=== PATIENT | male | born 2000 | race Caucasian/White ===

== ENCOUNTER 2020-06-30 13:47 | Outpatient (REF) | payer OTHER, SELFPAY | END 2020-06-30 13:48 | disposition home or self-care (01) | LOC: HO.LAB 13:47 | PROVIDERS: Visit Provider Internal Medicine | DX: Z20.822 Contact with and (suspected) exposure to COVID-19 (principal) | CPT/HCPCS: 36415; C9803; U0003 ==

== ENCOUNTER 2021-04-08 02:37 | Inpatient (IN) | payer OTHER, SELFPAY ==
--- NOTE | 2021-04-08 02:41 | ED_ITS ---
HPI - Psych General Chief Complaint: Psychiatric Symptoms Stated Complaint: Crisis Time Seen by Provider: 04/08/21 02:38 Source: patient Mode of arrival: ambulatory Limitations: no limitations History of Present Illness HPI Narrative: per BHN seen in [facility] S12 bedsearch complaint: suicidal ideation and feels depressed Onset (ago): week(s) Duration: constant History of same: Yes Relieving factors: none Exacerbating factors: other Context: other (states two nights ago he took several pills of his 10mg escitalopram in overdose) Associated psychiatric symptoms: depression and suicidal ideation Associated symptoms: denies other symptoms Treatments prior to arrival: placed on mental health hold If self harm: admits thoughts of self harm, has plan and has acted on plan Related Data Allergies Allergy/AdvReac Type Severity Reaction Status Date / Time Unable to Assess Allergy Verified 04/08/21 02:42 Review of Systems Review of Systems: Constitutional : No Fever, No Chills ENT/Mouth : No Ear Pain, No Nasal Congestion, No sore throat Eyes: No Eye Pain, No Swelling, No Redness Cardiovascular : No Chest Pain, No SOB Respiratory : No Cough, No Sputum, No Dyspnea Gastrointestinal : No Nausea, No Vomiting, No Diarrhea, No Hematochezia, No Melena Genitourinary : No Dysuria, No Urinary Frequency, No Hematuria Musculoskeletal : No Myalgias Skin : No Skin Lesions, No rash Neuro : No Weakness, No Numbness, No Paresthesias, No Dizziness, No Headache Psych : positive Anxiety, positive Depression, positive SI no HI Heme/Lymph: No Lymphadenopathy Endocrine : No Polyuria, No Polydipsia All other systems reviewed and are negative PMFSH Past Medical History Attestation statement: The following information was validated with the patient. Medical History Depression Social History Social History (Updated 04/08/21 @ 02:50 by Ana Gomez DO) Patient Tobacco Use Status: Never used Tobacco Substance Use Type: Marijuana Advance Directives: No Physical Exam Vital Signs: Vital Signs: Last Vital Signs Temp 98.2 F 04/08/21 03:11 Pulse 90 04/08/21 03:11 Resp 17 04/08/21 03:11 BP 142/89 H 04/08/21 03:11 Pulse Ox 96 04/08/21 03:11 Body Mass Index 27.1 Appearance: Alert. Oriented X3. No acute distress. Eyes: Pupils equal, round and reactive to light. ENT: Pharynx normal. Neck: Normal inspection. Neck supple. CVS: Normal heart rate and rhythm. Pulses normal. Respiratory: No respiratory distress. Breath sounds normal. Abdomen: Soft and non-tender. Skin: Skin warm and dry. Normal skin color. Extremities: No lower extremity edema. Neuro: Oriented X 3. No motor deficit. No sensory deficit. CN 2-12 intact Psych: pos SI, depression Course Course Course Narrative: Physician observation started at 356am Patient placed in physician observation because the patient needed more time for psychiatric placement. At the time observation was started the patient's vitals were stable, patient is alert and oriented, Neuro: nonfocal, CV RRR, Lungs clear MDM - Psych MDM Narrative Medical decision making narrative: 21 yo male with depression here with SI on section 12 hold and inpatient bed search from [facility] - he did report an ingestion of 10mg escitalopram 2 nights ago in SI attempt - will need labs, EKG to medically cleared but since it has been 48 hours I do not expect any toxic effects at this time. Planned bed search. Lab Data Labs: Lab Results 04/08/21 Range/Units 03:27 COVID-19 ([facility]AN[facility]) Negative (Negative) COVID-19 Clin Com See Note ECG Data Attestation: I personally reviewed and interpreted this ECG as follows: ECG interpretation date: 04/08/21 ECG interpretation time: 03:38 Interpretation: Rate: 71 Rhythm: NSR [place]: normal Normal P waves. Normal KINDRA. Normal QRS complex. ST T wave : normal no DAVID, early repolarization qTC: normal prior studies: no acute ischemia The study has been interpreted contemporaneously by me. . Discharge Plan Discharge Clinical Impression: Depression Qualifiers: Depression Type: unspecified Qualified Code(s): F32.A - Depression, unspecified Patient Disposition: Still a Patient
[2021-04-08 02:45] VITALS: BP 142/89; PULSE 97; RESP 17; TEMP 36.8; O2SAT 95; BMI 27.1
--- NOTE | 2021-04-08 02:48 | ECG_ITS ---
Test Reason : CP Blood Pressure : / mmHG Vent. Rate : 071 BPM Atrial Rate : 071 BPM P-R Int : 154 ms QRS Dur : 088 ms QT Int : 378 ms P-R-T Axes : 057 058 046 degrees QTc Int : 410 ms Normal sinus rhythm Nonspecific T wave abnormality Anterior leads Borderline ECG No previous ECGs available Referred By: Ana Gomez Electronically Signed By:NAOMIE LOPES MD
[2021-04-08 03:11] VITALS: BP 142/89; PULSE 90; RESP 17; TEMP 36.8; O2SAT 96
[2021-04-08 03:46] LABS: COVID-19 Test Negative (Negative); IDNOW Serial# 9DD0AD1C
[2021-04-08 04:06] LABS: MANUAL DIFF FLAG NO
[2021-04-08 04:08] LABS: Basophils Percent Auto 0.3 % (0-2); Eosinophils Percent Auto 0.3 % (0-4); Hematocrit 46.3 % (42-52); Hemoglobin 15.5 g/dl (14.0-18.0); Imm Gran Abs Auto 0.03 X10*3/uL (0.00-0.03); Imm Gran Pct Auto 0.3 % (0.0-0.4); Lymphocytes Absolute Auto 2.3 X10*3/uL (1.2-4.9); Lymphocytes Percent Auto 20.8 % (20-40); Mean Corpuscular HGB Conc 33.5 g/dl (31.0-36.0); Mean Corpuscular Hemoglobin 27.4 pg (27.0-33.0); Mean Corpuscular Volume 81.9 fL (80-98); Mean Platelet Volume 11.1 fL (9.4-12.4); Monocytes Absolute Auto 0.9 X10*3/uL (0.1-1.2); Monocytes Percent Auto 7.6 % (2-11); Neutrophils Absolute Auto 7.9 X10*3/uL (2.0-8.3); Neutrophils Percent Auto 70.7 % (45-73); Platelet Count 205 X10*3/uL (160-400); Red Blood Count 5.65 X10*6/uL (4.60-5.80); Red Cell Distribution Width 12.5 % (11.0-16.0); White Blood Count 11.2 X10*3/uL (4.8-10.8)
[2021-04-08 04:21] LABS: Ethanol < 10 mg/dL
[2021-04-08 04:27] LABS: Alanine Aminotransferase 17 U/L (0-40); Alkaline Phosphatase 68 U/L (39-117); Anion Gap 14 (12-20); Aspartate Amino Transferase 20 U/L (5-37); Bilirubin Direct 0.2 mg/dL (0.0-0.5); Bilirubin Total 0.5 mg/dL (0.0-1.0); Blood Urea Nitrogen 11 mg/dL (9-16); Calcium 9.6 mg/dL (8.4-10.2); Carbon Dioxide 27 mmol/L (22-29); Chloride 103 mmol/L (96-108); Creatinine Clr Calc Pharmacy 116.5; Estimated Glomerular Filt Rate > 60; Glucose Random 97 mg/dL (60-115); Potassium 4.9 mmol/L (3.3-5.1); Sodium 139 mmol/L (135-145); Total Protein 7.6 g/dL (6.5-8.0)
--- NOTE | 2021-04-08 05:04 | PC.NURSE ---
Patient is up in his room watching TV, No distress observed/reported, VSS, pending urine sample, behavior calm and pleasant, patient is off his medication for months, patient reported he attempted to overdose on his prescribed meds last Monday, EKG unremarkable, patient got evaluated by BHN via zoom, disposition is section 12 inpatient bed search, patient and mother aware, will continue to monitor.
[2021-04-08 05:10] VITALS: BP 121/71; PULSE 81; TEMP 36.6; O2SAT 99
--- NOTE | 2021-04-08 06:59 | PC.NURSE ---
patient appears to remain asleep at present, respirations are even and unlabored, patient appears in no distress
[2021-04-08 08:54] LABS: Amphetamine Screen Urine Not Detected (Not Detect); Barbiturates, Urine Not Detected (Not Detect); Benzodiazepines Screen Urine Not Detected (Not Detect); Cannabinoid Screen Urine POSITIVE (Not Detect); Cocaine Screen Urine Not Detected (Not Detect); Fentanyl, urine Not Detected (Not Detect); Opiate Screen Urine Not Detected (Not Detect); Phencyclidine Screen Urine Not Detected (Not Detect)
[2021-04-08 16:12] VITALS: BP 129/79; PULSE 71; RESP 16; TEMP 36.6; O2SAT 98; BMI 33.2
--- NOTE | 2021-04-08 17:47 | PC.ADMIT ---
Pt is a 21y/o male transferred from [facility] for medical clearance. Pt reports overdosing on two bottles of pills. Pt A/O X3. VSS. Covid negativ, Tox positive for THC, CV, 15mins check. Diagnosis: depression/OD. Pt appeared labile, and depressed, endorsed SI, denies Hi. No auditory or visual hallucination reported. Speech is clear with normal rhythm, tone and tano. Pt states he wants to get his medications fixed. Pr C/O of bilateral blurry vision and slow stream when urinating. Provider notified, admit/transfer order obtained.
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
[2021-04-08] MEDS: Mirtazapine 7.5 MG TABLET PO (20:25)
[2021-04-09] MEDS: Escitalopram Oxalate 10 MG TABLET PO (09:25)
[2021-04-09 10:10] VITALS: BP 138/78; PULSE 67
--- NOTE | 2021-04-09 10:38 | HO.PSYCHPN ---
Subjective Subjective Date of Service: 04/09/21 Reason For Visit: Depression and SI Interim History: pt depressed; ambivalent about whether he's glad he's alive or wishes he but is working on being hopeful and wants treatment. Reviewed hx. Pt reports trial of Prozac for 1 month during which time he started talking indiscriminately to people about personal things, something very out of character. During this time he had pressured speech and would quickly interrupt others to talk more about his own topics. He found himself more hyper, moving around a lot; he still slept at night, but thinks he was needing less sleep at this time. Pt did not like how he felt, did not like being disinhibited so stopped taking Prozac and quickly fell into a deep depression. Mental Status Exam Mental Status Exam Narrative: A&O. Well groomed, good hygiene, normal body habitus, in hospital attire. Depressed mood; affect downcast and eye contact somewhat avoidant, attentive. No Tics or Tremors. No abnormal involuntary movements. Calm, cooperative, engaged. Non-pressured speech, spontaneous with regular rate and rhythm, normal volume and prosody. No prolonged speech latency or dysarthria. Currently denies SI, but still ambivalent about being alive; has recent SIB and intentional OD attempt; denies HI upon inquiry. Denies A/VH or delusional thought content. Thoughts are coherent, organized. No known cognitive or memory impairment. Insight/ Judgment impaired.? Diagnostics Vital Signs (24Hr): Vital Signs - 24 hr 04/08/21 16:12 04/09/21 10:10 Temperature 97.8 F Pulse Rate 71 67 Respiratory Rate 16 Blood Pressure 129/79 138/78 Pulse Oximetry 98 Body Mass Index 33.2 Labs Results: 04/08/21 04:01 04/08/21 04:01 Labs: Laboratory Results - last 48 hr 04/08/21 04/08/21 04/08/21 03:27 04:01 04:01 WBC 11.2 H RBC 5.65 Hgb 15.5 Hct 46.3 MCV 81.9 MCH 27.4 MCHC 33.5 RDW 12.5 Plt Count 205 MPV 11.1 Immature Gran % (Auto) 0.3 Neut % (Auto) 70.7 Lymph % (Auto) 20.8 [place] % (Auto) 7.6 Eos % (Auto) 0.3 Baso % (Auto) 0.3 Lymph # (Auto) 2.3 [place] # (Auto) 0.9 Eos # (Auto) 0.0 Baso # (Auto) 0.0 Abs Immat Gran (auto) 0.03 Absolute Neuts (auto) 7.9 Absolute Nucleated RBC 0.000 Nucleated RBC % (auto) 0.0 Sodium 139 Potassium 4.9 Chloride 103 Carbon Dioxide 27 Anion Gap 14 BUN 11 Creatinine 1.10 Estim Creat Clear Calc 116.5 Estimated GFR > 60 Random Glucose 97 Calcium 9.6 Total Bilirubin 0.5 Direct Bilirubin 0.2 AST 20 ALT 17 Alkaline Phosphatase 68 Total Protein 7.6 Albumin 5.0 Urine Opiates Screen Urine Fentanyl Screen Ur Barbiturates Screen Ur Phencyclidine Scrn Ur Amphetamines Screen U Benzodiazepines Scrn Urine Cocaine Screen U Marijuana (THC) Screen Ethyl Alcohol COVID-19 ([facility]) Negative COVID-19 Clin Com See Note 04/08/21 04/08/21 04:01 08:33 WBC RBC Hgb Hct MCV MCH MCHC RDW Plt Count MPV Immature Gran % (Auto) Neut % (Auto) Lymph % (Auto) [place] % (Auto) Eos % (Auto) Baso % (Auto) Lymph # (Auto) [place] # (Auto) Eos # (Auto) Baso # (Auto) Abs Immat Gran (auto) Absolute Neuts (auto) Absolute Nucleated RBC Nucleated RBC % (auto) Sodium Potassium Chloride Carbon Dioxide Anion Gap BUN Creatinine Estim Creat Clear Calc Estimated GFR Random Glucose Calcium Total Bilirubin Direct Bilirubin AST ALT Alkaline Phosphatase Total Protein Albumin Urine Opiates Screen Not Detected Urine Fentanyl Screen Not Detected Ur Barbiturates Screen Not Detected Ur Phencyclidine Scrn Not Detected Ur Amphetamines Screen Not Detected U Benzodiazepines Scrn Not Detected Urine Cocaine Screen Not Detected U Marijuana (THC) Screen POSITIVE H Ethyl Alcohol < 10 COVID-19 ([facility]) COVID-19 Clin Com Medications Medications Current Medications Acetaminophen (Acetaminophen 325 Mg Tablet) 650 mg PO Q6H PRN PRN Reason: Headache/Pain Mild Scale (1-3) Al Hydroxide/Mg Hydroxide (Magnesium Hydrox/Alum Hydrox 30 Ml Oral.Susp) 30 ml PO Q6H PRN PRN Reason: Heartburn/Nausea Al Hydroxide/Mg Hydroxide (Magnesium Hydrox/Alum Hydrox 30 Ml Oral.Susp) 30 ml PO Q6H PRN PRN Reason: Heartburn/Nausea Escitalopram Oxalate (Escitalopram Oxalate 10 Mg Tablet) 10 mg PO DAILY [facility] Last Admin: 04/09/21 09:25 Dose: 10 mg Documented by: Hydroxyzine HCl (Hydroxyzine Hcl 25 Mg Tablet) 25 mg PO Q6H PRN PRN Reason: Anxiety Hydroxyzine HCl (Hydroxyzine Hcl 25 Mg Tablet) 25 mg PO QID PRN PRN Reason: Anxiety Magnesium Hydroxide (Milk Of Magnesia 30 Ml Oral.Susp) 30 ml PO DAILY PRN PRN Reason: Constipation Magnesium Hydroxide (Milk Of Magnesia 30 Ml Oral.Susp) 30 ml PO DAILY PRN PRN Reason: Constipation Mirtazapine (Mirtazapine 7.5 Mg Tablet) 7.5 mg PO BEDTIME [facility] Last Admin: 04/08/21 20:25 Dose: 7.5 mg Documented by: Mirtazapine (Mirtazapine 7.5 Mg Tablet) 7.5 mg PO BEDTIME [facility] Last Admin: 04/09/21 09:26 Dose: Not Given Documented by: Nicotine Polacrilex (Nicotine Polacrilex 2 Mg Gum) 4 mg BUCCAL Q2H PRN PRN Reason: Nicotine Cravings Trazodone HCl (Trazodone Hcl 50 Mg Tablet) 50 mg PO BEDTIME PRN PRN Reason: Insomnia Trazodone HCl (Trazodone Hcl 50 Mg Tablet) 50 mg PO BEDTIME PRN PRN Reason: Insomnia Allergies Allergies Allergy/AdvReac Type Severity Reaction Status Date / Time No Known Allergies Allergy Verified 04/08/21 05:01 Assessment & Plan Assessment & Plan (1) MDD (major depressive disorder), recurrent episode, moderate: Status: Acute Code(s): F33.1 - Major depressive disorder, recurrent, moderate (2) Post traumatic stress disorder (PTSD): Status: Acute Code(s): F43.10 - Post-traumatic stress disorder, unspecified Assessment and Plan: Orion is a 21 y.o. Male who carries a dx of MDD, recurrent, r/o of PTSD. He presented to [facility] on 04/08/21 after being seen by Sohail gasca in the community, placed on a section 12a with bed search. Recent SA by OD on 04/06/21. medically cleared by ED provider. Currently prsenting with sx of depression including sad mood, feeling of guilt and shame, intrusive thoughts of self harm and SI, poor sleep hygiene, and irritability. Pt has limited supports. May benefit from OP anger management and DBT. Hx sounds like Bipolar depression: -Pt reports trial of Prozac for 1 month during which time he started talking indiscriminately to people about personal things, something very out of character. During this time he had pressured speech and would quickly interrupt others to talk more about his own topics. He found himself more hyper, moving around a lot; he still slept at night, but thinks he was needing less sleep at this time. Pt did not like how he felt, did not like being disinhibited so stopped taking Prozac and quickly fell into a deep depression.? -Started on Mirtazapine on admission which he says helped him sleep; trazodone also available -strongly considering Mood stabilizer given what sounds like bipolar depression, though Pt is young, ambivalent about medications in general Plan: CONSIDER [place] vs Trileptal vs Lamcital (will depend on patients willingness to remain adherent to med regimen) -was started remeron 7.5 mg QHS for poor sleep, anxiety, and depression. May titrate up if helpful. Discussed risks and benefits, remeron selected due to low SE profile as pt has had SE on past SSRI and to help with poor sleep, perseverative thoughts, and depression. Monitor response to medications. Obtain collateral contact info?as needed I spent minutes with the patient and/or on the patient floor today, greater than?50% of which was spent counseling/coordinating care. Reason for contiued inpatient stay Substantial Risk for: rapid decompensation and med/psych decompensation
[2021-04-09 18:00] VITALS: BP 118/78; PULSE 68; RESP 16; TEMP 36.4; O2SAT 98
[2021-04-09] MEDS: Mirtazapine 7.5 MG TABLET PO ×2 (19:42)
[2021-04-10 06:00] VITALS: BP 118/75; PULSE 83; RESP 18; TEMP 36.7; O2SAT 99
[2021-04-10] MEDS: Escitalopram Oxalate 10 MG TABLET PO (07:58)
[2021-04-10] MEDS: hydrOXYzine HCL 25 MG TABLET PO (09:14)
--- NOTE | 2021-04-10 09:46 | P.PNPSI_ITS ---
Subjective Subjective Date of Service: 04/10/21 Reason For Visit: Depression and SI Interim History: 04/09:pt depressed; ambivalent about whether he's glad he's alive or wishes he but is working on being hopeful and wants treatment. Reviewed hx. Pt reports trial of Prozac for 1 month during which time he started talking indiscriminately to people about personal things, something very out of character. During this time he had pressured speech and would quickly interrupt others to talk more about his own topics. He found himself more hyper, moving around a lot; he still slept at night, but thinks he was needing less sleep at this time. Pt did not like how he felt, did not like being disinhibited so stopped taking Prozac and quickly fell into a deep depression. 04/10: Depressed. Evasive initially but later more open. No SI here. Hopes meds will help. 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 Well groomed, good hygiene, normal body habitus, in hospital attire. Depressed mood; affect downcast and eye contact somewhat avoidant, attentive. No Tics or Tremors. No abnormal involuntary movements. Calm, cooperative, engaged. Non-pressured speech, spontaneous with regular rate and rhythm, normal volume and prosody. No prolonged speech latency or dysarthria. Currently denies SI, but still ambivalent about being alive; has recent SIB and intentional OD attempt; denies HI upon inquiry. Denies A/VH or delusional thought content. Thoughts are coherent, organized. No known cognitive or memory impairment. Insight/ Judgment impaired.? Diagnostics Vital Signs (24Hr): Vital Signs - 24 hr 04/09/21 10:10 04/09/21 18:00 04/10/21 06:00 Temperature 97.5 F 98.1 F Pulse Rate 67 68 83 Respiratory Rate 16 18 Blood Pressure 138/78 118/78 118/75 Pulse Oximetry 98 99 Body Mass Index 33.2 Labs Results: 04/08/21 04:01 04/08/21 04:01 Medications Medications Current Medications Acetaminophen (Acetaminophen 325 Mg Tablet) 650 mg PO Q6H PRN PRN Reason: Headache/Pain Mild Scale (1-3) Al Hydroxide/Mg Hydroxide (Magnesium Hydrox/Alum Hydrox 30 Ml Oral.Susp) 30 ml PO Q6H PRN PRN Reason: Heartburn/Nausea Al Hydroxide/Mg Hydroxide (Magnesium Hydrox/Alum Hydrox 30 Ml Oral.Susp) 30 ml PO Q6H PRN PRN Reason: Heartburn/Nausea Escitalopram Oxalate (Escitalopram Oxalate 10 Mg Tablet) 10 mg PO DAILY [facility] Last Admin: 04/10/21 07:58 Dose: 10 mg Documented by: Hydroxyzine HCl (Hydroxyzine Hcl 25 Mg Tablet) 25 mg PO Q6H PRN PRN Reason: Anxiety Last Admin: 04/10/21 09:14 Dose: 25 mg Documented by: Hydroxyzine HCl (Hydroxyzine Hcl 25 Mg Tablet) 25 mg PO QID PRN PRN Reason: Anxiety Magnesium Hydroxide (Milk Of Magnesia 30 Ml Oral.Susp) 30 ml PO DAILY PRN PRN Reason: Constipation Magnesium Hydroxide (Milk Of Magnesia 30 Ml Oral.Susp) 30 ml PO DAILY PRN PRN Reason: Constipation Mirtazapine (Mirtazapine 7.5 Mg Tablet) 7.5 mg PO BEDTIME [facility] Last Admin: 04/09/21 19:42 Dose: 7.5 mg Documented by: Nicotine Polacrilex (Nicotine Polacrilex 2 Mg Gum) 4 mg BUCCAL Q2H PRN PRN Reason: Nicotine Cravings Trazodone HCl (Trazodone Hcl 50 Mg Tablet) 50 mg PO BEDTIME PRN PRN Reason: Insomnia Trazodone HCl (Trazodone Hcl 50 Mg Tablet) 50 mg PO BEDTIME PRN PRN Reason: Insomnia Allergies Allergies Allergy/AdvReac Type Severity Reaction Status Date / Time No Known Allergies Allergy Verified 04/08/21 05:01 Assessment & Plan Assessment & Plan (1) MDD (major depressive disorder), recurrent episode, moderate: Status: Acute Code(s): F33.1 - Major depressive disorder, recurrent, moderate (2) Post traumatic stress disorder (PTSD): Status: Acute Code(s): F43.10 - Post-traumatic stress disorder, unspecified Assessment and Plan: Orion is a 21 y.o. Male who carries a dx of MDD, recurrent, r/o of PTSD. He presented to [facility] ED on 04/08/21 after being seen by ARLETTE gasca in the community, placed on a section 12a with bed search. Recent SA by OD on 04/06/21. medically cleared by ED provider. Currently prsenting with sx of depression including sad mood, feeling of guilt and shame, intrusive thoughts of self harm and SI, poor sleep hygiene, and irritability. Pt has limited supports. May benefit from OP anger management and DBT. Plan: start remeron 7.5 mg QHS for poor sleep, anxiety, and depression. May titrate up if helpful. Discussed risks and benefits, remeron selected due to low SE profile as pt has had SE on past SSRI and to help with poor sleep, perseverative thoughts, and depression. Monitor response to medications. Monitor for safety in the milieu. Discharge on stabilization. Patient seen. Chart reviewed. Discussed with team. Obtain collateral contact info?as needed 04/10: Ct plan. Monitor depression and SI I spent minutes with the patient and/or on the patient floor today, greater than?50% of which was spent counseling/coordinating care. Reason for contiued inpatient stay Substantial Risk for: harm to self
[2021-04-10 18:00] VITALS: BP 125/61; PULSE 74; TEMP 36.6
[2021-04-10] MEDS: Mirtazapine 7.5 MG TABLET PO (22:09)
[2021-04-11] MEDS: Escitalopram Oxalate 10 MG TABLET PO (08:30)
--- NOTE | 2021-04-11 08:42 | HO.PSYCHPN ---
Subjective Subjective Date of Service: 04/11/21 Reason For Visit: Depression and SI Interim History: 04/09:pt depressed; ambivalent about whether he's glad he's alive or wishes he but is working on being hopeful and wants treatment. Reviewed hx. Pt reports trial of Prozac for 1 month during which time he started talking indiscriminately to people about personal things, something very out of character. During this time he had pressured speech and would quickly interrupt others to talk more about his own topics. He found himself more hyper, moving around a lot; he still slept at night, but thinks he was needing less sleep at this time. Pt did not like how he felt, did not like being disinhibited so stopped taking Prozac and quickly fell into a deep depression. 04/10: Depressed. Evasive initially but later more open. No SI here. Hopes meds will help. Sleep poor Michelle got a lot on my mind 04/11: Enigmatic responses. Depressed. Not sharing much. Poor eye contact. Monitor for SI but denies SI Review of Systems Review of Systems CVS: No c/o chest pain, palpitations, no SOB RELIGIOUS EDUCATION COORDINATOR: No c/o dizziness, headache GI: No c/o Nausea, Vomiting, diarrhea, constipation or heartburn Mental Status Exam Mental Status Exam Narrative: A&O. Well groomed, good hygiene, normal body habitus, in hospital attire. Depressed mood; affect downcast and eye contact somewhat avoidant, attentive. No Tics or Tremors. No abnormal involuntary movements. Calm, cooperative, engaged. Non-pressured speech, spontaneous with regular rate and rhythm, normal volume and prosody. No prolonged speech latency or dysarthria. Currently denies SI, but still ambivalent about being alive; has recent SIB and intentional OD attempt; denies HI upon inquiry. Denies A/VH or delusional thought content. Thoughts are coherent, organized. No known cognitive or memory impairment. Insight/ Judgment impaired.? Diagnostics Vital Signs (24Hr): Vital Signs - 24 hr 04/10/21 18:00 Temperature 97.8 F Pulse Rate 74 Blood Pressure 125/61 Body Mass Index 33.2 Labs Results: 04/08/21 04:01 04/08/21 04:01 Medications Medications Current Medications Acetaminophen (Acetaminophen 325 Mg Tablet) 650 mg PO Q6H PRN PRN Reason: Headache/Pain Mild Scale (1-3) Al Hydroxide/Mg Hydroxide (Magnesium Hydrox/Alum Hydrox 30 Ml Oral.Susp) 30 ml PO Q6H PRN PRN Reason: Heartburn/Nausea Al Hydroxide/Mg Hydroxide (Magnesium Hydrox/Alum Hydrox 30 Ml Oral.Susp) 30 ml PO Q6H PRN PRN Reason: Heartburn/Nausea Escitalopram Oxalate (Escitalopram Oxalate 10 Mg Tablet) 10 mg PO DAILY [facility] Last Admin: 04/11/21 08:30 Dose: 10 mg Documented by: Hydroxyzine HCl (Hydroxyzine Hcl 25 Mg Tablet) 25 mg PO Q6H PRN PRN Reason: Anxiety Last Admin: 04/10/21 09:14 Dose: 25 mg Documented by: Hydroxyzine HCl (Hydroxyzine Hcl 25 Mg Tablet) 25 mg PO QID PRN PRN Reason: Anxiety Magnesium Hydroxide (Milk Of Magnesia 30 Ml Oral.Susp) 30 ml PO DAILY PRN PRN Reason: Constipation Magnesium Hydroxide (Milk Of Magnesia 30 Ml Oral.Susp) 30 ml PO DAILY PRN PRN Reason: Constipation Mirtazapine (Mirtazapine 7.5 Mg Tablet) 7.5 mg PO BEDTIME [facility] Last Admin: 04/10/21 22:09 Dose: 7.5 mg Documented by: Nicotine Polacrilex (Nicotine Polacrilex 2 Mg Gum) 4 mg BUCCAL Q2H PRN PRN Reason: Nicotine Cravings Trazodone HCl (Trazodone Hcl 50 Mg Tablet) 50 mg PO BEDTIME PRN PRN Reason: Insomnia Trazodone HCl (Trazodone Hcl 50 Mg Tablet) 50 mg PO BEDTIME PRN PRN Reason: Insomnia Allergies Allergies Allergy/AdvReac Type Severity Reaction Status Date / Time No Known Allergies Allergy Verified 04/08/21 05:01 Assessment & Plan Assessment & Plan (1) MDD (major depressive disorder), recurrent episode, moderate: Status: Acute Code(s): F33.1 - Major depressive disorder, recurrent, moderate (2) Post traumatic stress disorder (PTSD): Status: Acute Code(s): F43.10 - Post-traumatic stress disorder, unspecified Assessment and Plan: Orion is a 21 y.o. Male who carries a dx of MDD, recurrent, r/o of PTSD. He presented to [facility] on 04/08/21 after being seen by N crisis in the community, placed on a section 12a with bed search. Recent SA by OD on 04/06/21. medically cleared by ED provider. Currently prsenting with sx of depression including sad mood, feeling of guilt and shame, intrusive thoughts of self harm and SI, poor sleep hygiene, and irritability. Pt has limited supports. May benefit from OP anger management and DBT. Hx sounds like Bipolar depression: -Pt reports trial of Prozac for 1 month during which time he started talking indiscriminately to people about personal things, something very out of character. During this time he had pressured speech and would quickly interrupt others to talk more about his own topics. He found himself more hyper, moving around a lot; he still slept at night, but thinks he was needing less sleep at this time. Pt did not like how he felt, did not like being disinhibited so stopped taking Prozac and quickly fell into a deep depression.? -Started on Mirtazapine on admission which he says helped him sleep; trazodone also available -strongly considering Mood stabilizer given what sounds like bipolar depression, though Pt is young, ambivalent about medications in general Plan: CONSIDER [place] vs Trileptal vs Lamcital (will depend on patients willingness to remain adherent to med regimen) -was started remeron 7.5 mg QHS for poor sleep, anxiety, and depression. May titrate up if helpful. Discussed risks and benefits, remeron selected due to low SE profile as pt has had SE on past SSRI and to help with poor sleep, perseverative thoughts, and depression. Monitor response to medications. Obtain collateral contact info?as needed 04/11: Ct plan I spent minutes with the patient and/or on the patient floor today, greater than?50% of which was spent counseling/coordinating care. Reason for contiued inpatient stay Substantial Risk for: harm to self
[2021-04-11 12:28] VITALS: BP 140/84; PULSE 85; RESP 18; O2SAT 97
[2021-04-11 18:00] VITALS: BP 149/68; PULSE 79; TEMP 36.6
[2021-04-11] MEDS: Acetaminophen 325 MG TABLET 650 MG PO (21:17)
[2021-04-11] MEDS: Mirtazapine 7.5 MG TABLET PO (22:08)
[2021-04-12 06:00] VITALS: BP 119/75; PULSE 85; RESP 18; TEMP 35.9; O2SAT 98
--- NOTE | 2021-04-12 10:33 | P.PNPSI_ITS ---
Subjective Subjective Date of Service: 04/12/21 Reason For Visit: Depression and SI Interim History: seen on 04/12 Patient says he's ready to take medications now and discuss options. pt reports yesterday was a tough day; he had a triggering phone call (does not want to talk about specifics) but became suicidal and was wishing that his overdose attempt was successfully; pt punched a wall in frustration (typewriter assembler examined and fully functional, full mobility, non-tender, no brusing). Pt marilu frank was able to talk w/ staff and regain some hope. Still struggling with intermittent SI, but working on staying hopeful. While previously ambivalent, He feels he knows now that he needs help from meds. Termite Exterminator Helper discussed dx of likely bipolar depression and medication options, going over potential risks/side- effects. Pt decided on Lamictal, understanding risks, including of deadly rash and need to take med as prescribed; he reports he will be consistent w/ meds and talk w/ provider if wants to make med change. He says if does not work, he will likely then give [place] a try. Pt says that he will reach out for help (here or at home) if he feels unsafe. pt reports sleeping well; no AVH; no HI Mental Status Exam Mental Status Exam Narrative: Pt is alert and oriented; behavior is cooperative and calm, though quiet; patient is not in distress; dressed in casual attire with adequate hygiene; mood is described as depressed and affect congruent, face downcast, minimal eye con tact appropriate; Speech is a little latent and a little slow; normal volume; not pressured; psychomotor retardation present; thought process is organized and goal directed; Thought content is on tx and on upsetting life situations about which pt remains reticent; however, TC pertinent to relevant topics and without any delusional content, paranoid ideations or grandiosity; denies any HI. SI intermittent, passive. There is no evidence of perceptual disturbance. Patients insight and judgment are impaired but improving. Diagnostics Vital Signs (24Hr): Vital Signs - 24 hr 04/11/21 12:28 04/11/21 18:00 04/12/21 06:00 Temperature 97.9 F 96.6 F L Pulse Rate 85 79 85 Respiratory Rate 18 18 Blood Pressure 140/84 H 149/68 H 119/75 Pulse Oximetry 97 98 Body Mass Index 33.2 Labs Results: 04/08/21 04:01 04/08/21 04:01 Medications Medications Current Medications Acetaminophen (Acetaminophen 325 Mg Tablet) 650 mg PO Q6H PRN PRN Reason: Headache/Pain Mild Scale (1-3) Last Admin: 04/11/21 21:17 Dose: 650 mg Documented by: Al Hydroxide/Mg Hydroxide (Magnesium Hydrox/Alum Hydrox 30 Ml Oral.Susp) 30 ml PO Q6H PRN PRN Reason: Heartburn/Nausea Hydroxyzine HCl (Hydroxyzine Hcl 25 Mg Tablet) 25 mg PO Q6H PRN PRN Reason: Anxiety Last Admin: 04/10/21 09:14 Dose: 25 mg Documented by: Magnesium Hydroxide (Milk Of Magnesia 30 Ml Oral.Susp) 30 ml PO DAILY PRN PRN Reason: Constipation Mirtazapine (Mirtazapine 7.5 Mg Tablet) 7.5 mg PO BEDTIME [facility] Last Admin: 04/11/21 22:08 Dose: 7.5 mg Documented by: Nicotine Polacrilex (Nicotine Polacrilex 2 Mg Gum) 4 mg BUCCAL Q2H PRN PRN Reason: Nicotine Cravings Trazodone HCl (Trazodone Hcl 50 Mg Tablet) 50 mg PO BEDTIME PRN PRN Reason: Insomnia Allergies Allergies Allergy/AdvReac Type Severity Reaction Status Date / Time No Known Allergies Allergy Verified 04/08/21 05:01 Assessment & Plan Assessment & Plan (1) MDD (major depressive disorder), recurrent episode, moderate: Status: Acute Code(s): F33.1 - Major depressive disorder, recurrent, moderate (2) Post traumatic stress disorder (PTSD): Status: Acute Code(s): F43.10 - Post-traumatic stress disorder, unspecified Assessment and Plan: Orion is a 21 y.o. Male who carries a dx of MDD, recurrent, r/o of PTSD. He presented to [facility] ED on 04/08/21 after being seen by N crisis in the community, placed on a section 12a with bed search. Recent SA by OD on 04/06/21. medically cleared by ED provider. Currently prsenting with sx of depression including sad mood, feeling of guilt and shame, intrusive thoughts of self harm and SI, poor sleep hygiene, and irritability. Lives with Supportive mother. May benefit from OP anger management and DBT. Hx sounds like Bipolar depression: -Pt reports trial of Prozac for 1 month during which time he started talking indiscriminately to people about personal things, something very out of character. During this time he had pressured speech and would quickly interrupt others to talk more about his own topics. He found himself more hyper, moving around a lot; he still slept at night, but thinks he was needing less sleep at this time. Pt did not like how he felt, did not like being disinhibited so stopped taking Prozac and quickly fell into a deep depression.? -Started on Mirtazapine on admission which he says helped him sleep; trazodone also available -remains with SI and on 04/11 wished attempt worked; however now wants to try meds -discussed med options (risks/side-effects) and pt would like trial of Lamictal Plan: START Lamictal 25mg daily (25mg daily for 2 weeks, then 50mg for 2 weeks; then titrate further) -continue remeron 7.5 mg QHS; may increase dose now that he is starting on mood stabilizer (started for poor sleep, anxiety, and depression. Discussed risks and benefits, remeron selected due to low SE profile as pt has had SE on past SSRI and to help with poor sleep, perseverative thoughts, and depression. Monitor response to medications. Obtain collateral contact info?as needed 04/11: Ct plan I spent minutes with the patient and/or on the patient floor today, greater than?50% of which was spent counseling/coordinating care. Reason for contiued inpatient stay Substantial Risk for: rapid decompensation and med/psych decompensation
[2021-04-12] MEDS: lamoTRIgine 25 MG TABLET PO (12:00)
[2021-04-12 18:00] VITALS: BP 127/83; PULSE 70; TEMP 36.4; O2SAT 98
[2021-04-12] MEDS: Mirtazapine 7.5 MG TABLET PO (22:13)
[2021-04-13 06:00] VITALS: BP 136/69; PULSE 68; TEMP 36.4; O2SAT 98
[2021-04-13] MEDS: lamoTRIgine 25 MG TABLET PO (08:39)
--- NOTE | 2021-04-13 10:24 | P.PNPSI_ITS ---
Subjective Subjective Date of Service: 04/13/21 Reason For Visit: Depression and SI Interim History: pt seen on 04/13 Patient reports that his mood is better. Still feels depressed and agrees to increase mirtazapine however says he does not have SI. Did not sleep well last night, tossing and turning having in upsetting dreams. Patient hopes to be able to go home later this week Mental Status Exam Mental Status Exam Narrative: Pt is alert and oriented; behavior is cooperative and calm, though quiet; patient is not in distress; dressed in casual attire with adequate hygiene; mood is described as better and affect congruent, brighter; adequate eye contact; Speech is normal rate, volume; not pressured; no psychomotor retardation present; thought process is organized and goal directed; Thought content is on tx and getting over upsetting life situations (continues to remain reticent); however, TC pertinent to relevant topics and without any delusional content, paranoid ideations or grandiosity; denies any HI. SI intermittent, passive. There is no evidence of perceptual disturbance.? Patients insight and judgment are impaired but improving. Diagnostics Vital Signs (24Hr): Vital Signs - 24 hr 04/12/21 18:00 04/13/21 06:00 Temperature 97.6 F 97.5 F Pulse Rate 70 68 Blood Pressure 127/83 136/69 Pulse Oximetry 98 98 Body Mass Index 33.2 Labs Results: 04/08/21 04:01 04/08/21 04:01 Medications Medications Current Medications Acetaminophen (Acetaminophen 325 Mg Tablet) 650 mg PO Q6H PRN PRN Reason: Headache/Pain Mild Scale (1-3) Last Admin: 04/11/21 21:17 Dose: 650 mg Documented by: Al Hydroxide/Mg Hydroxide (Magnesium Hydrox/Alum Hydrox 30 Ml Oral.Susp) 30 ml PO Q6H PRN PRN Reason: Heartburn/Nausea Hydroxyzine HCl (Hydroxyzine Hcl 25 Mg Tablet) 25 mg PO Q6H PRN PRN Reason: Anxiety Last Admin: 04/10/21 09:14 Dose: 25 mg Documented by: Lamotrigine (Lamotrigine 25 Mg Tablet) 25 mg PO DAILY [facility] Last Admin: 04/13/21 08:39 Dose: 25 mg Documented by: Magnesium Hydroxide (Milk Of Magnesia 30 Ml Oral.Susp) 30 ml PO DAILY PRN PRN Reason: Constipation Mirtazapine (Mirtazapine 7.5 Mg Tablet) 7.5 mg PO BEDTIME [facility] Last Admin: 04/12/21 22:13 Dose: 7.5 mg Documented by: Nicotine Polacrilex (Nicotine Polacrilex 2 Mg Gum) 4 mg BUCCAL Q2H PRN PRN Reason: Nicotine Cravings Trazodone HCl (Trazodone Hcl 50 Mg Tablet) 50 mg PO BEDTIME PRN PRN Reason: Insomnia Allergies Allergies Allergy/AdvReac Type Severity Reaction Status Date / Time No Known Allergies Allergy Verified 04/08/21 05:01 Assessment & Plan Assessment & Plan (1) MDD (major depressive disorder), recurrent episode, moderate: Status: Acute Code(s): F33.1 - Major depressive disorder, recurrent, moderate (2) Post traumatic stress disorder (PTSD): Status: Acute Code(s): F43.10 - Post-traumatic stress disorder, unspecified Assessment and Plan: Orion is a 21 y.o. Male who carries a dx of MDD, recurrent, r/o of PTSD. He presented to [facility] on 04/08/21 after being seen by N crisis in the community, placed on a section 12a with bed search. Recent SA by OD on 04/06/21. medically cleared by ED provider. Currently prsenting with sx of depression including sad mood, feeling of guilt and shame, intrusive thoughts of self harm and SI, poor sleep hygiene, and irritability. Lives with Supportive mother. May benefit from OP anger management and DBT. Hx sounds like Bipolar depression: -Pt reports trial of Prozac for 1 month during which time he started talking indiscriminately to people about personal things, something very out of character. During this time he had pressured speech and would quickly interrupt others to talk more about his own topics. He found himself more hyper, moving around a lot; he still slept at night, but thinks he was needing less sleep at this time. Pt did not like how he felt, did not like being disinhibited so stopped taking Prozac and quickly fell into a deep depression.? -Started on Mirtazapine on admission which he says helped him sleep; trazodone also available -remains with SI and on 04/11 wished attempt worked; however now wants to try meds -discussed med options (risks/side-effects) and pt would like trial of Lamictal Plan: START Lamictal 25mg daily (25mg daily for 2 weeks, then 50mg for 2 weeks; then titrate further) -continue remeron 7.5 mg QHS; may increase dose now that he is starting on mood stabilizer (started for poor sleep, anxiety, and depression. Discussed risks and benefits, remeron selected due to low SE profile as pt has had SE on past SSRI and to help with poor sleep, perseverative thoughts, and depression. Monitor response to medications. Obtain collateral contact info?as needed 04/11: Ct plan I spent minutes with the patient and/or on the patient floor today, greater than?50% of which was spent counseling/coordinating care. Reason for contiued inpatient stay Substantial Risk for: med/psych decompensation
[2021-04-13] MEDS: Mirtazapine 15 MG TABLET PO (21:38)
[2021-04-14] MEDS: lamoTRIgine 25 MG TABLET PO (08:32)
[2021-04-14 09:15] VITALS: BP 120/81; PULSE 72; TEMP 36.1; O2SAT 98
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
[2021-04-14] MEDS: hydrOXYzine HCL 25 MG TABLET PO (13:29)
[2021-04-14 18:30] VITALS: BP 129/74; PULSE 90; TEMP 36.8
[2021-04-14] MEDS: Mirtazapine 15 MG TABLET PO (21:59)
[2021-04-14] MEDS: traZODone HCL 50 MG TABLET PO (22:00)
[2021-04-15 06:00] VITALS: BP 134/79; PULSE 86; RESP 18; TEMP 36.7; O2SAT 100
[2021-04-15] MEDS: lamoTRIgine 25 MG TABLET PO (08:56)
[2021-04-15 14:30] VITALS: BP 134/77; PULSE 93
[2021-04-15] MEDS: cloNIDine HCL 0.1 MG TABLET PO (14:30)
[2021-04-15 16:40] VITALS: BP 148/67; PULSE 75; TEMP 36.8
[2021-04-15] MEDS: traZODone HCL 50 MG TABLET PO (22:13)
[2021-04-15] MEDS: Mirtazapine 15 MG TABLET PO (22:13)
[2021-04-16 06:00] VITALS: BP 101/50; PULSE 69; RESP 18; TEMP 35.9; O2SAT 98
[2021-04-16] MEDS: lamoTRIgine 25 MG TABLET PO (08:38)
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
[2021-04-16] MEDS: diphenhydrAMINE HCL 25 MG TABLET 50 MG PO (10:34)
[2021-04-16] MEDS: LORazepam 1 MG TABLET 2 MG PO (10:36)
[2021-04-16] MEDS: HaloperidoL 5 MG TABLET PO (10:36)
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
[2021-04-16 16:29] VITALS: BP 112/70; PULSE 89
[2021-04-16] MEDS: cloNIDine HCL 0.1 MG TABLET PO (16:29)
[2021-04-16 18:00] VITALS: BP 112/70; PULSE 89; RESP 16; TEMP 36.5; O2SAT 98
[2021-04-16] MEDS: Mirtazapine 15 MG TABLET PO (20:01)
[2021-04-17 06:00] VITALS: BP 122/61; PULSE 66; RESP 18; TEMP 36; O2SAT 97
[2021-04-17 08:09] VITALS: BP 114/69; PULSE 67
[2021-04-17] MEDS: cloNIDine HCL 0.1 MG TABLET PO ×2 (08:09→15:26)
[2021-04-17] MEDS: lamoTRIgine 25 MG TABLET PO (08:09)
--- NOTE | 2021-04-17 14:15 | HO.PSYCHPN ---
Subjective Subjective Date of Service: 04/17/21 Reason For Visit: Depression and SI Medical Problems Affecting Mental Status: No Interim History: reports overall feeling better. Thankfully he stayed the weekend. Reports feeling that he is getting a better handle on anger and depression. Sleep is improved. Feeling thankful around having a family to return to a [facility] supportive. Did endorse recently also feeling overwhelmed and not knowing how to manage his frustration. Looking forward to discharge after the weekend. Also feeling supported by community providers he has at [facility]. Medication Compliance: Yes Side effects from medications: No Attending Groups: Yes Review of Systems Acute medical concerns: No Review of Systems Review of Systems unremarkable Diagnostics Vital Signs (24Hr): Vital Signs - 24 hr 04/17/21 06:00 04/17/21 08:09 04/17/21 15:26 Temperature 96.8 F Pulse Rate 66 67 94 Respiratory Rate 18 Blood Pressure 122/61 114/69 119/65 Pulse Oximetry 97 04/17/21 18:00 Temperature 97.9 F Pulse Rate 90 Respiratory Rate 16 Blood Pressure 120/69 Pulse Oximetry 98 Body Mass Index 33.2 Labs Results: 04/08/21 04:01 04/08/21 04:01 Medications Medications Current Medications Acetaminophen (Acetaminophen 325 Mg Tablet) 650 mg PO Q6H PRN PRN Reason: Headache/Pain Mild Scale (1-3) Last Admin: 04/11/21 21:17 Dose: 650 mg Documented by: Al Hydroxide/Mg Hydroxide (Magnesium Hydrox/Alum Hydrox 30 Ml Oral.Susp) 30 ml PO Q6H PRN PRN Reason: Heartburn/Nausea Clonidine HCl (Clonidine Hcl 0.1 Mg Tablet) 0.1 mg PO BID@0830,1500 BALJINDER; Protocol Last Admin: 04/17/21 15:26 Dose: 0.1 mg Documented by: Diphenhydramine HCl (Diphenhydramine Hcl 25 Mg Tablet) 50 mg PO Q4H PRN PRN Reason: agitation Last Admin: 04/16/21 10:34 Dose: 50 mg Documented by: Haloperidol (Haloperidol 5 Mg Tablet) 5 mg PO Q4H PRN PRN Reason: severe agitation Hydroxyzine HCl (Hydroxyzine Hcl 25 Mg Tablet) 25 mg PO Q6H PRN PRN Reason: Anxiety Last Admin: 04/14/21 13:29 Dose: 25 mg Documented by: Lamotrigine (Lamotrigine 25 Mg Tablet) 25 mg PO DAILY [facility] Last Admin: 04/17/21 08:09 Dose: 25 mg Documented by: Lorazepam (Lorazepam 1 Mg Tablet) 2 mg PO Q4H PRN PRN Reason: agitation Last Admin: 04/16/21 10:36 Dose: 2 mg Documented by: Magnesium Hydroxide (Milk Of Magnesia 30 Ml Oral.Susp) 30 ml PO DAILY PRN PRN Reason: Constipation Mirtazapine (Mirtazapine 15 Mg Tablet) 15 mg PO BEDTIME BALJINDER Last Admin: 04/17/21 20:26 Dose: 15 mg Documented by: Nicotine Polacrilex (Nicotine Polacrilex 2 Mg Gum) 4 mg BUCCAL Q2H PRN PRN Reason: Nicotine Cravings Olanzapine (Olanzapine 5 Mg Tablet) 5 mg PO TID PRN PRN Reason: mild to moderate agitation Trazodone HCl (Trazodone Hcl 50 Mg Tablet) 50 mg PO BEDTIME PRN PRN Reason: Insomnia Last Admin: 04/15/21 22:13 Dose: 50 mg Documented by: Allergies Allergies Allergy/AdvReac Type Severity Reaction Status Date / Time No Known Allergies Allergy Verified 04/08/21 05:01 Assessment & Plan Assessment & Plan (1) MDD (major depressive disorder), recurrent episode, moderate: Status: Acute Code(s): F33.1 - Major depressive disorder, recurrent, moderate (2) Post traumatic stress disorder (PTSD): Status: Acute Code(s): F43.10 - Post-traumatic stress disorder, unspecified Assessment and Plan: Orion is a 21 y.o. Male who carries a dx of MDD, recurrent, r/o of PTSD. He presented to [facility] on 04/08/21 after being seen by N crisis in the community, placed on a section 12a with bed search. Recent SA by OD on 04/06/21. medically cleared by ED provider. Currently prsenting with sx of depression including sad mood, feeling of guilt and shame, intrusive thoughts of self harm and SI, poor sleep hygiene, and irritability. Lives with Supportive mother. May benefit from OP anger management and DBT. Hx sounds like Bipolar depression: -Pt reports trial of Prozac for 1 month during which time he started talking indiscriminately to people about personal things, something very out of character. During this time he had pressured speech and would quickly interrupt others to talk more about his own topics. He found himself more hyper, moving around a lot; he still slept at night, but thinks he was needing less sleep at this time. Pt did not like how he felt, did not like being disinhibited so stopped taking Prozac and quickly fell into a deep depression.? -Started on Mirtazapine on admission which he says helped him sleep; trazodone also available -remains with SI and on 04/11 wished attempt worked; however now wants to try meds -discussed med options (risks/side-effects) and pt would like trial of Lamictal Apr 14; pt mood changed today and he is depressed and angry, isolating and was hitting desk with his fist. Pt denies SI but says this anger and depression took over him today and he feels like hitting things and being destructive. Pt slept lastnight, but only 5 hours and felt restless overall; not sure if this is a burgeoning manic episode or his mood is congruent with some triggered thought. Pt currently does not want any med changes. Will add haldol prn in case he becomes agitated 04/15 patient intermittently triggered into strong angry emotions and today struggling to keep his anger in check and remain with appropriate behaviors. Patient agreed to try clonidine to see if helpful 04/16 still intermittently tormented by very strong emotions. Patient took Haldol/Ativan/Benadryl to come down from severe agitation this morning. Of note patient worked hard to keep his anger under control and was able to do so prior to getting the p.r.n. using various coping skills. Patient agreed to have clonidine scheduled since it helped him yesterday. Patient denies SI or HI. He does not want to hurt anyone and does not want to be controlled by his anger and expresses gratitudefor the help received here Plan: Clonidine 0.1mg BID at 8:30am and 3:00pm for help with emotional dysregulation; Zyprexa 2.5mg PRN for Mild-moderate agitation haldol 5/ativan 2mg/bendadryl 50mg prn for Severe agitation continue Lamictal 25mg daily (25mg daily for 2 weeks, then 50mg for 2 weeks; then titrate further) remeron 15 mg QHS; increased dose for depression now that he is starting on mood stabilizer (started for poor sleep, anxiety, and depression. Will monitor for ino Discussed risks and benefits, remeron selected due to low SE profile as pt has had SE on past SSRI and to help with poor sleep, perseverative thoughts, and depression. Monitor response to medications. Obtain collateral contact info?as needed Plan: START Lamictal 25mg daily (25mg daily for 2 weeks, then 50mg for 2 weeks; then titrate further) -continue remeron 7.5 mg QHS; may increase dose now that he is starting on mood stabilizer (started for poor sleep, anxiety, and depression. Discussed risks and benefits, remeron selected due to low SE profile as pt has had SE on past SSRI and to help with poor sleep, perseverative thoughts, and depression. Monitor response to medications. Obtain collateral contact info?as needed 04/11: Ct plan 04/17/2021: No changes to current plan. I spent minutes with the patient and/or on the patient floor today, greater than?50% of which was spent counseling/coordinating care. Reason for contiued inpatient stay Substantial Risk for: harm to self and rapid decompensation
[2021-04-17 15:26] VITALS: BP 119/65; PULSE 94
[2021-04-17 18:00] VITALS: BP 120/69; PULSE 90; RESP 16; TEMP 36.6; O2SAT 98
[2021-04-17] MEDS: Mirtazapine 15 MG TABLET PO (20:26)
[2021-04-18 06:00] VITALS: BP 107/57; PULSE 67; RESP 18; TEMP 36.8; O2SAT 100
[2021-04-18 08:32] VITALS: BP 137/89; PULSE 80
[2021-04-18] MEDS: cloNIDine HCL 0.1 MG TABLET PO ×2 (08:32→14:49)
[2021-04-18] MEDS: lamoTRIgine 25 MG TABLET PO (08:33)
--- NOTE | 2021-04-18 13:07 | HO.PSYCHPN ---
Subjective Subjective Date of Service: 04/18/21 Reason For Visit: Depression and SI Medical Problems Affecting Mental Status: No Interim History: Continues to report feeling better overall and glad he stayed through the weekend. Anger much less. Mood brighter. Sleep fair. Looking forward to discharge after the weekend. Also feeling supported by community providers he has at [facility]. Medication Compliance: Yes Side effects from medications: No Attending Groups: Yes Review of Systems Review of Systems unremarkable Mental Status Exam Mental Status Exam Narrative: Overall engaged. Casually dressed. Good self-care. Reports mood and has been better. Organized. Affect restricted. No SI. No HI. No agitation. No psychosis. Insight judgment fair Diagnostics Vital Signs (24Hr): Vital Signs - 24 hr 04/17/21 15:26 04/17/21 18:00 04/18/21 06:00 Temperature 97.9 F 98.3 F Pulse Rate 94 90 67 Respiratory Rate 16 18 Blood Pressure 119/65 120/69 107/57 L Pulse Oximetry 98 100 04/18/21 08:32 Temperature Pulse Rate 80 Respiratory Rate Blood Pressure 137/89 Pulse Oximetry Body Mass Index 33.2 Labs Results: 04/08/21 04:01 04/08/21 04:01 Medications Medications Current Medications Acetaminophen (Acetaminophen 325 Mg Tablet) 650 mg PO Q6H PRN PRN Reason: Headache/Pain Mild Scale (1-3) Last Admin: 04/11/21 21:17 Dose: 650 mg Documented by: Al Hydroxide/Mg Hydroxide (Magnesium Hydrox/Alum Hydrox 30 Ml Oral.Susp) 30 ml PO Q6H PRN PRN Reason: Heartburn/Nausea Clonidine HCl (Clonidine Hcl 0.1 Mg Tablet) 0.1 mg PO BID@0830,1500 BALJINDER; Protocol Last Admin: 04/18/21 08:32 Dose: 0.1 mg Documented by: Diphenhydramine HCl (Diphenhydramine Hcl 25 Mg Tablet) 50 mg PO Q4H PRN PRN Reason: agitation Last Admin: 04/16/21 10:34 Dose: 50 mg Documented by: Haloperidol (Haloperidol 5 Mg Tablet) 5 mg PO Q4H PRN PRN Reason: severe agitation Hydroxyzine HCl (Hydroxyzine Hcl 25 Mg Tablet) 25 mg PO Q6H PRN PRN Reason: Anxiety Last Admin: 04/14/21 13:29 Dose: 25 mg Documented by: Lamotrigine (Lamotrigine 25 Mg Tablet) 25 mg PO DAILY [facility] Last Admin: 04/18/21 08:33 Dose: 25 mg Documented by: Lorazepam (Lorazepam 1 Mg Tablet) 2 mg PO Q4H PRN PRN Reason: agitation Last Admin: 04/16/21 10:36 Dose: 2 mg Documented by: Magnesium Hydroxide (Milk Of Magnesia 30 Ml Oral.Susp) 30 ml PO DAILY PRN PRN Reason: Constipation Mirtazapine (Mirtazapine 15 Mg Tablet) 15 mg PO BEDTIME [facility] Last Admin: 04/17/21 20:26 Dose: 15 mg Documented by: Nicotine Polacrilex (Nicotine Polacrilex 2 Mg Gum) 4 mg BUCCAL Q2H PRN PRN Reason: Nicotine Cravings Olanzapine (Olanzapine 5 Mg Tablet) 5 mg PO TID PRN PRN Reason: mild to moderate agitation Trazodone HCl (Trazodone Hcl 50 Mg Tablet) 50 mg PO BEDTIME PRN PRN Reason: Insomnia Last Admin: 04/15/21 22:13 Dose: 50 mg Documented by: Allergies Allergies Allergy/AdvReac Type Severity Reaction Status Date / Time No Known Allergies Allergy Verified 04/08/21 05:01 Assessment & Plan Assessment & Plan (1) MDD (major depressive disorder), recurrent episode, moderate: Status: Acute Code(s): F33.1 - Major depressive disorder, recurrent, moderate (2) Post traumatic stress disorder (PTSD): Status: Acute Code(s): F43.10 - Post-traumatic stress disorder, unspecified Assessment and Plan: Orion is a 21 y.o. Male who carries a dx of MDD, recurrent, r/o of PTSD. He presented to [facility] on 04/08/21 after being seen by N crisis in the community, placed on a section 12a with bed search. Recent SA by OD on 04/06/21. medically cleared by ED provider. Currently prsenting with sx of depression including sad mood, feeling of guilt and shame, intrusive thoughts of self harm and SI, poor sleep hygiene, and irritability. Lives with Supportive mother. May benefit from OP anger management and DBT. Hx sounds like Bipolar depression: -Pt reports trial of Prozac for 1 month during which time he started talking indiscriminately to people about personal things, something very out of character. During this time he had pressured speech and would quickly interrupt others to talk more about his own topics. He found himself more hyper, moving around a lot; he still slept at night, but thinks he was needing less sleep at this time. Pt did not like how he felt, did not like being disinhibited so stopped taking Prozac and quickly fell into a deep depression.? -Started on Mirtazapine on admission which he says helped him sleep; trazodone also available -remains with SI and on 04/11 wished attempt worked; however now wants to try meds -discussed med options (risks/side-effects) and pt would like trial of Lamictal Apr 14; pt mood changed today and he is depressed and angry, isolating and was hitting desk with his fist. Pt denies SI but says this anger and depression took over him today and he feels like hitting things and being destructive. Pt slept lastnight, but only 5 hours and felt restless overall; not sure if this is a burgeoning manic episode or his mood is congruent with some triggered thought. Pt currently does not want any med changes. Will add haldol prn in case he becomes agitated 04/15 patient intermittently triggered into strong angry emotions and today struggling to keep his anger in check and remain with appropriate behaviors. Patient agreed to try clonidine to see if helpful 04/16 still intermittently tormented by very strong emotions. Patient took Haldol/Ativan/Benadryl to come down from severe agitation this morning. Of note patient worked hard to keep his anger under control and was able to do so prior to getting the p.r.n. using various coping skills. Patient agreed to have clonidine scheduled since it helped him yesterday. Patient denies SI or HI. He does not want to hurt anyone and does not want to be controlled by his anger and expresses gratitudefor the help received here Plan: Clonidine 0.1mg BID at 8:30am and 3:00pm for help with emotional dysregulation; Zyprexa 2.5mg PRN for Mild-moderate agitation haldol 5/ativan 2mg/bendadryl 50mg prn for Severe agitation continue Lamictal 25mg daily (25mg daily for 2 weeks, then 50mg for 2 weeks; then titrate further) remeron 15 mg QHS; increased dose for depression now that he is starting on mood stabilizer (started for poor sleep, anxiety, and depression. Will monitor for ino Discussed risks and benefits, remeron selected due to low SE profile as pt has had SE on past SSRI and to help with poor sleep, perseverative thoughts, and depression. Monitor response to medications. Obtain collateral contact info?as needed Plan: START Lamictal 25mg daily (25mg daily for 2 weeks, then 50mg for 2 weeks; then titrate further) -continue remeron 7.5 mg QHS; may increase dose now that he is starting on mood stabilizer (started for poor sleep, anxiety, and depression. Discussed risks and benefits, remeron selected due to low SE profile as pt has had SE on past SSRI and to help with poor sleep, perseverative thoughts, and depression. Monitor response to medications. Obtain collateral contact info?as needed 04/11: Ct plan 04/18/2021: No changes to current plan. I spent minutes with the patient and/or on the patient floor today, greater than?50% of which was spent counseling/coordinating care. Reason for contiued inpatient stay Substantial Risk for: harm to others
[2021-04-18 14:49] VITALS: BP 117/57; PULSE 87
[2021-04-18 17:02] VITALS: BP 110/66; PULSE 91; RESP 16; TEMP 36.6; O2SAT 97
[2021-04-18] MEDS: Mirtazapine 15 MG TABLET PO (20:59)
[2021-04-19 08:46] VITALS: BP 124/69; PULSE 71
[2021-04-19] MEDS: lamoTRIgine 25 MG TABLET PO (08:46)
[2021-04-19] MEDS: cloNIDine HCL 0.1 MG TABLET PO (08:46)
[2021-04-19 10:00] VITALS: BP 124/69; PULSE 71
--- NOTE | 2021-04-19 11:50 | P.DS_ITS ---
DS: Providers Provider Date of Service: 04/19/21 Date of admission: 04/08/21 11:32 Date of discharge: 04/19/21 Primary care physician: Unknown Physician Attending physician on admission: Gilmer Mccormick Attending physician on discharge: Gilmer Mccormick DS: Diagnosis Discharge Diagnosis (1) MDD (major depressive disorder), recurrent episode, moderate: Status: Acute (2) Post traumatic stress disorder (PTSD): Status: Acute DS: Medications Discharge Medications Home Medications: Previous Rx's Medication Instructions Recorded clonidine HCl 0.1 mg tablet 0.05 mg PO BID PRN 30 Days #30 tab 04/19/21 hydroxyzine HCl 25 mg tablet 25 mg PO Q6H PRN 30 Days #60 tab 04/19/21 lamotrigine 25 mg tablet See Rx Instructions .ROUTE 04/19/21 .COMPLEX 30 Days #53 tab mirtazapine 15 mg tablet 15 mg PO BEDTIME 30 Days #30 tab 04/19/21 trazodone 50 mg tablet 50 mg PO BEDTIME PRN 30 Days #30 04/19/21 tab Mental Status Exam Mental Status Exam Narrative: Pt is alert and oriented; behavior is calm and friendly; he is dressed in casual attire with good hygiene; mood is described as good... and affect is congruent; appropriate eye contact; Speech is regular rate, volume and prosody; not pressured; no? psychomotor agitation/retardation present; thought process is organized and goal directed; Thought content is on discharge and continuing treatment as outpt and pertinent to relevant topics and without any delusional content, paranoid ideations or grandiosity; denies any HI or SI; There is no evidence of perceptual disturbance.? Patients insight and judgment are intact. DS: Summary Hospital Course Hospital Course: Orion is a 21 y.o. Male who carries a dx of MDD, recurrent, r/o of PTSD. He presented to [facility] on 04/08/21 after being seen by N crisis in the community, placed on a section 12a with bed search. Recent SA by OD on 04/06/21. medically cleared by ED provider. Currently prsenting with sx of depression including sad mood, feeling of guilt and shame, intrusive thoughts of self harm and SI, poor sleep hygiene, and irritability. Lives with Supportive mother. Patient on CV. On admission he was depressed with intermittent SI and at 1st wished he was ; however he had no plans or intent to harm himself, wanted treatment, was hopeful of getting better and felt safe on the unit. Some aspects of patients hx sounded like Bipolar depression: Pt reports trial of Prozac for 1 month during which time he started talking indiscriminately to people about personal things, something very out of character. During this time he had pressured speech and would quickly interrupt others to talk more about his own topics. He found himself more hyper, moving around a lot; he still slept at night, but thinks he was needing less sleep at this time. Pt did not like how he felt, did not like being disinhibited so stopped taking Prozac and quickly fell into a deep depression. Patient's history and timeline of these events was little vague; combined with his hx of emotional dysregulation and PTSD his diagnosis remained MDD with bipolar to was rule out. He had already been started on Mirtazapine on admission which he says helped him sleep; trazodone also used. Given patient's history, blog writer recommended and patient agreed to a trial of mood stabilizer that could help treat depression, help with anger control and be protect against possible manic symptoms; blog writer discussed risks/side-effects of various med options, including lithium and depakote; pt carefully considered options and decided on a trial of Lamictal which was titrated. Patient's depression abated and SI resolved. During his admission, he was intermittently triggered by thoughts which sometimes resulted in him becoming emotional dysregulated; one or two times, patient expressed frustration by hitting the desk or the wall with his fists (no injury sustained). He was able to get himself under control and was open to being redirected; he was never aggressive towards any other person. Patient attended groups and was forthcoming in 1 on 1 sessions; he learned coping skills and worked hard to keep his anger under control. Clonidine was started and effective in helping with anxiety and emotional dysregulation. Patient's SI and depression remained resolved. He was future oriented and optimistic about his being stable and felt ready to return home. Pt was eating and sleeping well and denied med side- effects. He shared that his mother is very supportive and that he would turn to her, his therapist or others if he at all started to feel unsafe. Patient was not in imminent risk for harm to self or others had request for discharge honored. Time spent discussing smoking cessation with patient: 3 to 10 minutes Status at Discharge Functional status at discharge: independent ambulation Overall status at discharge: patient is back to baseline Time Spent with Patient Time attestation: Total time spent providing and/or coordinating discharge services: Time spent: Greater than 30 minutes Discharge Plan Discharge Patient Disposition: Home, Self-Care Discharge Diagnosis: MDD, recurrent, severe w/out psychotic features, in partial remission Referrals: [facility] [Other] - 1 Week (No call back from [facility], pt to call or walk in ) [facility] [Other] - 05/19/21 9:00 am (Initial Psychiatric Evaluation) [facility] [Other] - 06/16/21 9:30 am (Medication Management Appointment) [facility] [Provider Group] - 1 Week Physician,Crow J [Primary Care Provider] - 1 Week Discharge Medications: New lamotrigine 25 mg Tablet See Rx Instructions .ROUTE .COMPLEX 30 Days Qty: 53 RF: 0 mirtazapine 15 mg Tablet 15 mg PO BEDTIME 30 Days Qty: 30 RF: 0 trazodone 50 mg Tablet 50 mg PO BEDTIME PRN (Reason: Insomnia) 30 Days Qty: 30 RF: 0 hydroxyzine HCl 25 mg Tablet 25 mg PO Q6H PRN (Reason: Anxiety) 30 Days Qty: 60 RF: 0 clonidine HCl 0.1 mg tablet 0.05 mg PO BID PRN (Reason: anxiety/agitation) 30 Days Qty: 30 RF: 0 Discontinued escitalopram oxalate 10 mg tablet 1 tab PO DAILY RF: 0 Discharge Orders: Discharge Order (Routine); Ordered 04/19/21 Ordered By: Gilmer Mccormick Diet: regular diet Activity on Discharge: As tolerated Stand Alone Forms: Patient Portal Discharge page, Community Support Care Plan Goals: Maintain mood and safe behaviors Take medications as prescribed Avoid cannabis Practice coping skills Continue with outpatient providers and reach out to them as needed Health Concerns: Mood stability and behaviors Plan of Treatment: Follow up with your PCP, psychiatric provider and other outpatient providers regarding above concerns Take medications as prescribed Assessment: Risk assessment at time of discharge:? Patient was interviewed prior to discharge and found to be fully oriented and without any SI or HI. Patient has insight and demonstrates good judgment in terms of wanting to pursue treatment. Patient is not in imminent risk of harm to self or others and has a safety plan that includes presenting to the closest ER or calling 911 if feeling unsafe.? Patient has been observed closely by nursing and unit staff throughout admission; patient has not engaged in any behaviors that suggest dangerousness to self or others; patient became emotionally dysregulated a few times, but kept himself in control and otherwise demonstrated overall appropriate behaviors and impulse control Discharge Date/Time: 04/19/21 14:13
--- NOTE | 2021-05-20 13:38 | P.EN_ITS ---
Event Note Date of Service: 05/20/21 Event Note: Patient called to speak to sba underwriter. He said that he was waiting for his outpatient psychiatric appointment yesterday at 09:00 but never got a call. He has now run out of medications and needs a refill. Patient said that the medications have been working well that he is stable, no SI, no medication side effects including rash and that he would like to continue meds and increase his Lamictal to 75 mg. Patient said that today he has a therapy appointment with Sandy Bashir and will let them know about the missed psychiatric appointment so can be rescheduled. [employer] agreed to this 1 time refill for outpatient medications.
== END 2021-04-19 14:13 | disposition home or self-care (01) | DRG 751 ==
LOC: HO.ED 02:53 → HO.PM5 14:40
PROVIDERS: Admitting Provider Psychiatry & Neurology Psychiatry; Emergency Provider Emergency Medicine; Visit Provider Psychiatry & Neurology Psychiatry
DX: F33.1 Major depressive disorder, recurrent, moderate (principal); R45.851 Suicidal ideations; F43.10 Post-traumatic stress disorder, unspecified; Z20.822 Contact with and (suspected) exposure to COVID-19; Z79.899 Other long term (current) drug therapy
CPT/HCPCS: 36415; 80048; 80076; 80307; 82077; 85025; 87635; 93005; 99285; Q0163

== ENCOUNTER 2021-05-12 19:57 | Emergency (ER) | payer OTHER, SELFPAY ==
--- NOTE | ~2021-05-12 | XR_ITS ---
EXAMINATION: XR FINGER, RIGHT CLINICAL INFORMATION: Middle finger injury COMPARISON: None TECHNIQUE: 3 views of the right middle finger. FINDINGS: The bones and soft tissues are normal aside from some minimal ulnar deviation at the DIP joint. No fracture. Joint spaces are maintained. XR/XR finger RT min 2V IMPRESSION: Minimal angulation at the DIP joint but dislocation or even a subluxation is not seen. No fracture.
[2021-05-12 20:33] VITALS: BP 128/69; PULSE 81; RESP 16; TEMP 36.9; O2SAT 99; BMI 34.8
--- NOTE | 2021-05-12 20:45 | ED_ITS ---
HPI - Extremity Problem General Chief complaint: Extremity Injury, Upper Stated complaint: rt hand finger pain Time Seen by Provider: 05/12/21 20:45 Source: patient Mode of arrival: ambulatory Limitations: no limitations History of Present Illness HPI Narrative: 21-year-old male presents to the ED for right middle finger pain. Patient states he was trying to do a front flip and then he hurt his right middle finger. Patient denies falling to the ground or hitting head. Patient states no other complaints. Related Data Previous Rx's Medication Instructions Recorded clonidine HCl 0.1 mg tablet 0.05 mg PO BID PRN 30 Days #30 tab 04/19/21 hydroxyzine HCl 25 mg tablet 25 mg PO Q6H PRN 30 Days #60 tab 04/19/21 lamotrigine 25 mg tablet See Rx Instructions .ROUTE 04/19/21 .COMPLEX 30 Days #53 tab mirtazapine 15 mg tablet 15 mg PO BEDTIME 30 Days #30 tab 04/19/21 trazodone 50 mg tablet 50 mg PO BEDTIME PRN 30 Days #30 04/19/21 tab Allergies Allergy/AdvReac Type Severity Reaction Status Date / Time No Known Allergies Allergy Verified 04/08/21 05:01 Review of Systems Review of Systems: Yes all other systems are reviewed and are negative Constitutional: Constitutional: Reports as per HPI and Reports no additional constitutional complaints Eyes: Eyes: Reports as per HPI and Reports no additional eye complaints ENT: Reports system reviewed and no additional complaints, except as documented and Reports as per HPI Cardiovascular: Cardiovascular: Reports as per HPI and Reports no additional cardiovascular complaints Respiratory: Respiratory: Reports as per HPI and Reports no additional respiratory complaints Gastrointestinal: Gastrointestinal: Reports as per HPI and Reports no additional gastrointestinal complaints Genitourinary: Genitourinary: Reports no additional male genitourinary complaints and Reports as per HPI Musculoskeletal: Musculoskeletal: Reports no additional musculoskeletal complaints and Reports as per HPI Comments: Right middle finger pain Neurologic: Reports system reviewed and no additional complaints, except as documented and Reports as per HPI Psychiatric: Psychiatric: Reports no additional psychiatric complaints and Reports as per HPI PMF Past Medical History Medical History Depression Social History Social History (Updated 04/08/21 @ 02:50 by Ana Gomez DO) Household Members: Family Household Members Other:: 5 Housing: House Do you presently have visiting nurse or other home services: No Patient Tobacco Use Status: Never used Tobacco e-Cigarette/Vaping Use: Never Used Substance Use Type: Marijuana and Caffiene Advance Directives: No Advance Directives Information Provided: Yes service: No Sexual orientation: Straight/Heterosexual Physical Exam Vital Signs: Vital Signs: Last Vital Signs Temp 98.4 F 05/12/21 20:33 Pulse 81 05/12/21 20:33 Resp 16 05/12/21 20:33 BP 128/69 05/12/21 20:33 Pulse Ox 99 05/12/21 20:33 BMI result Body Mass Index 34.8 Const: General: cooperative, healthy appearing, comfortable, no acute distress, well developed, alert, awake, Physically active and acute distress Orientation/consciousness: patient oriented x3 HENMT: Head: Yes normal to inspection, Yes No palpable skull fracture present, Yes normocephalic, Yes atraumatic and Yes abrasion Eyes: General: appearance normal, both eyes and all related structures Neck: Neck: Yes normal visual inspection, Yes full ROM, Yes no lymphadenop athy, Yes no meningeal signs, Yes trachea midline, Yes supple, Yes anterior neck swelling and No tender Chest: Chest palpation & inspection: normal inspection of the chest and normal palpation of entire chest wall Resp: Effort & Inspection: normal respiratory effort and able to speak in comp lete sentences Auscultation: clear to auscultation bilaterally Cardio: Jugular venous distension: no JVD Heart sounds: S1 normal heart sound present and S2 normal heart sound present GI: Inspection: Yes normal to inspection and No abdominal wall ecchymosis Palpation (GI): Soft to palpation, not firm, nontender, no guarding and not rigid : General: No CVA tenderness and Yes no CVA tenderness Back/Spine/Pelvis: Back: no CVA tenderness, No CVA tenderness and No back tenderness Skin: General skin exam: no rashes or lesions noted and elasticity normal Neuro: General: patient oriented x3, gait normal, no meningeal signs and CN's II-XI intact bilaterally Cranial nerves: Yes CN's II-XII intact bilaterally Extrem: General: Yes normal to inspection and Yes full ROM Hand/finger images: 1. Tender on palpation. Negative for ecchymosis, crepitus. Negative for redness. Capillary refills intact. Rest of extremity normal. Motor/neuro/vascular exam intact Psych: Appearance: grossly normal, well kempt and not disheveled Course Course Course Narrative: Hand x-ray. Reevaluation(s) Reevaluation #1: Hand x-ray shows slight angulation of the DIP middle finger but negative for dislocation or fracture. Most likely patient has some tendon injury. Patient is placed in splint told to follow-up with hand surgeon Time: 21:04 MDM - Extremity (Nontraumatic) MDM Narrative Medical decision making narrative: Finger sprain. Mallet finger Discharge Plan Discharge Clinical Impression: Finger sprain Patient Disposition: Home, Self-Care Instructions: Jammed Finger (ED), Finger Sprain (ED) Additional Instructions: X-ray negative for fracture but shows sprain which may be caused by tendon injury. You need to follow-up with hand surgeon. Return to the ED immediately for worsening pain, redness, swelling, ecchymosis, bluish black discoloration, coolness, hotness, pus discharge, foul odor, fever, chills, or any other concerning symptoms. Prescriptions: No Action lamotrigine 25 mg Tablet See Rx Instructions .ROUTE .COMPLEX 30 Days Qty: 53 RF: 0 mirtazapine 15 mg Tablet 15 mg PO BEDTIME 30 Days Qty: 30 RF: 0 trazodone 50 mg Tablet 50 mg PO BEDTIME PRN (Reason: Insomnia) 30 Days Qty: 30 RF: 0 hydroxyzine HCl 25 mg Tablet 25 mg PO Q6H PRN (Reason: Anxiety) 30 Days Qty: 60 RF: 0 clonidine HCl 0.1 mg tablet 0.05 mg PO BID PRN (Reason: anxiety/agitation) 30 Days Qty: 30 RF: 0 Referrals: Gemma Benz MD [Physician] - 2 days (Slight ulnar deviation of right middle finger and DIP joint. May be tendon injury. Will need follow-up) Interventions: ED Discharge Assessment Last Done: 05/12/21 21:20 Discharge Date/Time: 05/12/21 21:22 Print Language: Argentine
--- NOTE | 2021-05-12 20:56 | PC.NURSE ---
FINGER SPLINT APPLY TO PATIENT RIGHT MIDDLE FINGER ,DIMAS SHELDON FINGER SPLINT .
--- NOTE | 2021-05-12 21:19 | PC.NURSE ---
FINGER SPLINT IN PLACE TO RIGHT MIDDLE FINGER CHECKED BY DIMAS POWELL.
== END 2021-05-12 21:22 | disposition home or self-care (01) ==
PROVIDERS: Emergency Provider Emergency Medicine
DX: S63.612A Unspecified sprain of right middle finger, initial encounter (principal); M79.644 Pain in right finger(s); X50.1XXA Overexertion from prolonged static or awkward postures, initial encounter; Y93.9 Activity, unspecified; Y92.9 Unspecified place or not applicable; Y99.9 Unspecified external cause status; Z79.899 Other long term (current) drug therapy
CPT/HCPCS: 29130; 73140; 99283

== ENCOUNTER → 2021-05-17 11:17 | Outpatient (BNVA) | payer OTHER, SELFPAY | PROVIDERS: Visit Provider Physician Assistant | DX: S63.402A Traumatic rupture of unspecified ligament of right middle finger at metacarpophalangeal and interphalangeal joint, initial encounter (principal) | CPT/HCPCS: 99202 ==

== ENCOUNTER 2021-05-31 15:30 | Outpatient (RCR) | payer OTHER, SELFPAY ==
--- NOTE | 2021-07-07 14:48 | MHC.OT.DC ---
[address] [phone] F: [phone] Occupational Therapy Discharge Note Provider: Celio Veloz PA-C Diagnosis: Traumatic rupture of right middle finger at PIP and DIP jt Date of Surgery: Date of Evaluation: 05/21/21 Date of Discharge: Treatments to Date: 2 Cancellations to Date: 1 No Shows to Date: 2 Discharge Status: Patient Elected to Stop Discharge Summary: Last appt pt with improving ROM and dec c/o pain. Inc ease with ROM after heat and ther ex and with rock tape on Con't mild edema noted Electronically Signed By: Lilliana Munguia OT ,CHT CLT Reviewed/agree with student documentation: N/A Therapist: Please Sign and return to therapist, thank you for your referral.
== END 2021-07-07 14:48 | disposition home or self-care (01) ==
LOC: HO.OT 15:30
PROVIDERS: Visit Provider Physician Assistant
DX: S63.40 Traumatic rupture of unspecified ligament of finger at metacarpophalangeal and interphalangeal joint (principal)
CPT/HCPCS: 29130; 97110; 97165; 97760

== ENCOUNTER 2021-06-08 21:09 | Emergency (ER) | payer OTHER, SELFPAY ==
--- NOTE | ~2021-06-08 | XR_ITS ---
EXAMINATION: XR CHEST CLINICAL INFORMATION: Cough. COMPARISON: None TECHNIQUE: Frontal view of the chest was obtained. FINDINGS: No significant abnormality is noted involving the heart, lungs, mediastinum, bony thorax or soft tissues. XR/XR chest 1V IMPRESSION: No acute cardiopulmonary process.
[2021-06-08 21:35] VITALS: BP 156/95; PULSE 93; RESP 18; TEMP 37.1; O2SAT 97; BMI 35.2
[2021-06-08 22:49] LABS: COVID-19 Test Positive (Negative); IDNOW Serial# 9DD0AD1C
[2021-06-09 00:27] VITALS: BP 124/75; PULSE 90; RESP 17; TEMP 37.2; O2SAT 97
--- NOTE | 2021-06-09 00:42 | ED_ITS ---
HPI - URI/Sore Throat General Chief Complaint: Upper Respiratory Symptoms Stated Complaint: flu like symptoms Time Seen by Provider: 06/09/21 00:42 Source: patient Mode of arrival: ambulatory History of Present Illness HPI Narrative: 21-year-old male without significant past medical history and not COVID-19 vaccinated presents with headaches, body aches as well as chills eyes any sore throat or loss of taste/smell. Related Data Previous Rx's Medication Instructions Recorded clonidine HCl 0.1 mg tablet 0.05 mg PO BID PRN 30 Days #30 tab 04/19/21 hydroxyzine HCl 25 mg tablet 25 mg PO Q6H PRN 30 Days #60 tab 04/19/21 lamotrigine 25 mg tablet See Rx Instructions .ROUTE 04/19/21 .COMPLEX 30 Days #53 tab mirtazapine 15 mg tablet 15 mg PO BEDTIME 30 Days #30 tab 04/19/21 trazodone 50 mg tablet 50 mg PO BEDTIME PRN 30 Days #30 04/19/21 tab clonidine HCl 0.1 mg tablet 0.05 mg PO BID PRN 30 Days #30 tab 05/20/21 hydroxyzine pamoate 50 mg capsule 50 mg PO BID PRN 30 Days #60 cap 05/20/21 (Vistaril) lamotrigine 25 mg tablet (Lamictal) 75 mg PO DAILY 30 Days #90 tab 05/20/21 trazodone 50 mg tablet 50 mg PO BEDTIME PRN 30 Days #30 05/20/21 tab Allergies Allergy/AdvReac Type Severity Reaction Status Date / Time No Known Allergies Allergy Verified 05/17/21 11:18 Review of Systems Review of Systems: Pertinent positives and negatives as stated in HPI 10 point review of systems is otherwise negative. [facility] Past Medical History Source: nursing notes reviewed Medical History Asthma Depression Surgical History S/P tonsillectomy Social History Social History Household Members: Family Household Members Other:: 5 Housing: House Do you presently have visiting nurse or other home services: No Patient Tobacco Use Status: Never used Tobacco e-Cigarette/Vaping Use: Never Used Substance Use Type: Marijuana and Caffiene Advance Directives: No Advance Directives Information Provided: Yes service: No Sexual orientation: Straight/Heterosexual Physical Exam Vital Signs: Vital Signs: Last Vital Signs Temp 98.9 F 06/09/21 00:27 Pulse 90 06/09/21 00:27 Resp 17 06/09/21 00:27 BP 124/75 06/09/21 00:27 Pulse Ox 97 06/09/21 00:27 BMI result Body Mass Index 35.2 VITAL SIGNS: Reviewed. GENERAL: Well developed, well nourished, in no acute distress. HEAD: Normocephalic/atraumatic, EYES: PERRLA, EOMI EARS: Ext canals without abnormality, TMs non-bulging and non-erythematous NOSE: Nasal congestion OROPHARYNX: no oral lesions noted, posterior pharynx clear and non-erythematous without noted tonsillar enlargement/erythema/exudates NECK: Supple, no adenopathy LUNGS: Normal breath sounds, no tachypnea or increased work of breathing. No adventitious sounds or accessory muscle use. SpO2<97> CARDIOVASCULAR: Regular rate and rhythm without noted murmurs ABDOMEN: Soft, non-tender, non-distended with bowel sounds. NEUROLOGIC: Alert and oriented x 4. Strength and sensation to light touch were grossly intact x 4. Course Course Course Narrative: 21-year-old male with his clinical presentation consistent with viral syndrome and on review of all investigations noted be COVID-19 pos itive. All results were discussed with him at bedside and he was otherwise discharged home in stable condition without tachypnea, he is currently afebrile, and oxygenating well on room air. MDM - URI/Sore Throat Lab Data Labs: Lab Results 06/08/21 Range/Units 22:27 COVID-19 ([facility]) Positive A (Negative) COVID-19 Clin Com See Note Discharge Plan Discharge Clinical Impression: COVID, Viral syndrome Patient Disposition: Home, Self-Care Instructions: Viral Syndrome (ED), COVID-19 (Coronavirus Disease 2019) (ED) Additional Instructions: 1. Recommend using [id number] Tylenol/ibuprofen as needed for body aches, headaches, temperatures greater than 100.4. 2. You must isolate for 10 days and follow all state and Federal guidelines. You are COVID-19 positive. 3. Follow-up with your primary care provider in the next 1-2 days via telemedicine appointment for re-evaluation further outpatient management. Return to the ER for worsening symptoms. Prescriptions: No Action lamotrigine 25 mg Tablet See Rx Instructions .ROUTE .COMPLEX 30 Days Qty: 53 RF: 0 mirtazapine 15 mg Tablet 15 mg PO BEDTIME 30 Days Qty: 30 RF: 0 trazodone 50 mg Tablet 50 mg PO BEDTIME PRN (Reason: Insomnia) 30 Days Qty: 30 RF: 0 hydroxyzine HCl 25 mg Tablet 25 mg PO Q6H PRN (Reason: Anxiety) 30 Days Qty: 60 RF: 0 clonidine HCl 0.1 mg tablet 0.05 mg PO BID PRN (Reason: anxiety/agitation) 30 Days Qty: 30 RF: 0 trazodone 50 mg tablet 50 mg PO BEDTIME PRN (Reason: insomnia) 30 Days Qty: 30 RF: 0 lamotrigine [Lamictal] 25 mg tablet 75 mg PO DAILY 30 Days Qty: 90 RF: 0 hydroxyzine pamoate [Vistaril] 50 mg capsule 50 mg PO BID PRN (Reason: anxiety) 30 Days Qty: 60 RF: 0 clonidine HCl 0.1 mg tablet 0.05 mg PO BID PRN (Reason: moderate anxiety) 30 Days Qty: 30 RF: 0
[2021-06-09] MEDS: Ibuprofen 400 MG TABLET PO (01:06)
[2021-06-09] MEDS: Acetaminophen 325 MG TABLET 975 MG PO (01:07)
== END 2021-06-09 02:00 | disposition home or self-care (01) ==
PROVIDERS: Emergency Provider Student in an Organized Health Care Education/Training Program
DX: U07.1 COVID-19 (principal); R51.9 Headache, unspecified; R43.8 Other disturbances of smell and taste
CPT/HCPCS: 36415; 71045; 87635; 99283

== ENCOUNTER 2021-06-18 11:21 | Emergency (ER) | payer OTHER, SELFPAY ==
[2021-06-18 12:08] VITALS: BP 114/85; PULSE 75; RESP 18; TEMP 36.7; O2SAT 97; BMI 36.6
[2021-06-18 14:01] LABS: COVID-19 Test Positive (Negative)
--- NOTE | 2021-06-18 14:31 | ED.GENADULT ---
HPI - General Adult General Chief complaint: General Medical Stated complaint: follow up COVID Time Seen by Provider: 06/18/21 14:11 Source: patient Mode of arrival: ambulatory Limitations: no limitations History of Present Illness HPI narrative: 21-year-old male here seeking COVID test. Patient tells me that 10 days ago he tested positive for COVID. He is here today as he is feeling improved and would like a test today he can return to work. He is asymptomatic. Prior to this he was on vaccinated. Reports that he had some mild upper respiratory symptoms for several days may self-resolved Related Data Previous Rx's Medication Instructions Recorded clonidine HCl 0.1 mg tablet 0.05 mg PO BID PRN 30 Days #30 tab 04/19/21 hydroxyzine HCl 25 mg tablet 25 mg PO Q6H PRN 30 Days #60 tab 04/19/21 lamotrigine 25 mg tablet See Rx Instructions .ROUTE 04/19/21 .COMPLEX 30 Days #53 tab mirtazapine 15 mg tablet 15 mg PO BEDTIME 30 Days #30 tab 04/19/21 trazodone 50 mg tablet 50 mg PO BEDTIME PRN 30 Days #30 04/19/21 tab clonidine HCl 0.1 mg tablet 0.05 mg PO BID PRN 30 Days #30 tab 05/20/21 hydroxyzine pamoate 50 mg capsule 50 mg PO BID PRN 30 Days #60 cap 05/20/21 (Vistaril) lamotrigine 25 mg tablet (Lamictal) 75 mg PO DAILY 30 Days #90 tab 05/20/21 trazodone 50 mg tablet 50 mg PO BEDTIME PRN 30 Days #30 05/20/21 tab Allergies Allergy/AdvReac Type Severity Reaction Status Date / Time No Known Allergies Allergy Verified 06/18/21 12:08 Review of Systems Review of Systems: Yes all other systems are reviewed and are negative Constitutional: Constitutional: Reports no additional constitutional complaints, Denies body ache(s), Denies chills, Denies fever(s), Denies headache(s) and Denies weakness Eyes: Eyes: Reports no additional eye complaints and Denies change in vision ENT: Reports system reviewed and no additional complaints, except as documented, Denies dizziness, Denies headache(s), Denies nasal congestion, Denies nasal discharge and Denies neck pain Cardiovascular: Cardiovascular: Reports no additional cardiovascular complaints, Denies chest pain, Denies leg edema and Denies dyspnea Respiratory: Respiratory: Reports no additional respiratory complaints, Denies cough and Denies dyspnea Gastrointestinal: Gastrointestinal: Reports no additional gastrointestinal complaints, Denies abdominal pain, Denies diarrhea, Denies nausea and Denies vomiting Genitourinary: Genitourinary: Denies urinary incontinence Musculoskeletal: Musculoskeletal: Reports no additional musculoskeletal complaints, Denies back pain, Denies arthralgias, Denies joint swelling, Denies neck pain, Denies numbness and Denies tingling Integumentary/Breasts: Skin/Breast: Reports system reviewed and no additional complaints, except as docu and Denies rash Neurologic: Reports system reviewed and no additional complaints, except as documented, Denies Abnormal speech present, Denies dizziness, Denies headache(s), Denies numbness, Denies tingling and Denies weakness PMFSH Past Medical History Attestation statement: The following information was validated with the patient. Source: old records reviewed and nursing notes reviewed Medical History Asthma Depression Surgical History S/P tonsillectomy Social History Social History Household Members: Family Household Members Other:: 5 Housing: House Do you presently have visiting nurse or other home services: No Patient Tobacco Use Status: Never used Tobacco e-Cigarette/Vaping Use: Never Used Substance Use Type: Marijuana and Caffiene Advance Directives: No Advance Directives Information Provided: Yes service: No Sexual orientation: Straight/Heterosexual Physical Exam Vital Signs: Vital Signs: Last Vital Signs Temp 98.1 F 06/18/21 12:08 Pulse 75 06/18/21 12:08 Resp 18 06/18/21 12:08 BP 114/85 06/18/21 12:08 Pulse Ox 97 06/18/21 12:08 BMI result Body Mass Index 36.6 Const: General: cooperative, healthy appearing, comfortable and no acute distress Orientation/consciousness: patient oriented x3 Limitations: no limitations HENMT: Head: Yes normal to inspection Ears: hearing grossly normal bilaterally General nose exam: Normal external nose present Face and sinus: Yes normal facial exam Mouth: Normal oral and palatal mucosa present Throat: Yes posterior oropharynx normal Eyes: General: appearance normal, both eyes and all related structures Pupils: Equal, round and reactive pupils present Neck: Neck: Yes normal visual inspection Chest: Chest palpation & inspection: normal inspection of the chest Resp: Effort & Inspection: normal respiratory effort Auscultation: clear to auscultation bilaterally Cardio: Rate: regular rate Rhythm: regular rhythm Peripheral pulses: Peripheral pulses 2+ throughout GI: Inspection: Yes normal to inspection Palpation (GI): Soft to palpation and nontender Auscultation: normal bowel sounds Back/Spine/Pelvis: Thoracic/Lumbar Spine: thoracic and lumbar spine normal to inspection Skin: General skin exam: no rashes or lesions noted Neuro: General: patient oriented x3, no focal motor deficits and normal sensation to monofilament Cranial nerves: Yes Equal, round and reactive pupils present Cognition (Neuro): normal cognition Speech: No Abnormal speech present Gait exam (Neuro): Normal gait present Motor exam (neuro): 5/5 motor strength present throughout Extrem: General: Yes normal to inspection Course Course Course Narrative: 21-year-old male here seeking COVID test to return to work after completing 10 day quarantine after testing positive. Patient is asymptomatic. COVID test is positive. I did discuss with the patient that he may continue to test positive for several weeks after recovering from COVID. As long as he is completed his 10 day quarantine he may return to all activities. Reviewed worrisome signs and symptoms of when to return to the emergency department. Comfortable discharge home. Medical Decision Making Medical Records Medical records reviewed: Yes I reviewed the patient's medical records. Lab Data Lab results reviewed: Yes I reviewed the patient's lab results. Labs: Lab Results 06/18/21 Range/Units 13:45 COVID-19 ([facility]) Positive A (Negative) COVID-19 Clin Com See Note Discharge Plan Discharge Clinical Impression: COVID-19 Patient Disposition: Home, Self-Care Instructions: COVID-19 (Coronavirus Disease 2019) (ED) Additional Instructions: you will to continue to test positive for COVID for several weeks even after recovering from COVID once you have completed your 10 day quarantine you do not need to continue to quarantine Prescriptions: No Action lamotrigine 25 mg Tablet See Rx Instructions .ROUTE .COMPLEX 30 Days Qty: 53 RF: 0 mirtazapine 15 mg Tablet 15 mg PO BEDTIME 30 Days Qty: 30 RF: 0 trazodone 50 mg Tablet 50 mg PO BEDTIME PRN (Reason: Insomnia) 30 Days Qty: 30 RF: 0 hydroxyzine HCl 25 mg Tablet 25 mg PO Q6H PRN (Reason: Anxiety) 30 Days Qty: 60 RF: 0 clonidine HCl 0.1 mg tablet 0.05 mg PO BID PRN (Reason: anxiety/agitation) 30 Days Qty: 30 RF: 0 trazodone 50 mg tablet 50 mg PO BEDTIME PRN (Reason: insomnia) 30 Days Qty: 30 RF: 0 lamotrigine [Lamictal] 25 mg tablet 75 mg PO DAILY 30 Days Qty: 90 RF: 0 hydroxyzine pamoate [Vistaril] 50 mg capsule 50 mg PO BID PRN (Reason: anxiety) 30 Days Qty: 60 RF: 0 clonidine HCl 0.1 mg tablet 0.05 mg PO BID PRN (Reason: moderate anxiety) 30 Days Qty: 30 RF: 0 Referrals: Physician,None [Primary Care Provider] - 2 days Stand Alone Forms: Work/School Release Interventions: ED Discharge Assessment Last Done: 06/18/21 14:39 Discharge Date/Time: 06/18/21 14:40
== END 2021-06-18 14:40 | disposition home or self-care (01) ==
LOC: HO.ED 14:32
PROVIDERS: Emergency Provider Emergency Medicine
DX: U07.1 COVID-19 (principal); F12.90 Cannabis use, unspecified, uncomplicated; Z79.899 Other long term (current) drug therapy
CPT/HCPCS: 87635; 99283

== ENCOUNTER 2021-09-21 17:36 | Emergency (ER) | payer OTHER, SELFPAY ==
--- NOTE | ~2021-09-21 | XR_ITS ---
EXAMINATION: XR ELBOW, RIGHT CLINICAL INFORMATION: Injury and pain COMPARISON: None TECHNIQUE: 4 plain film views of the right elbow. FINDINGS: No significant elbow joint effusion. Bones are normal anatomic alignment with no acute fracture or dislocation. Well-corticated ossifications along the medial epicondyle may represent old healed injury. Surrounding soft tissues otherwise unremarkable. XR/XR elbow RT min 3V IMPRESSION: No acute fracture or dislocation. No joint effusion.
[2021-09-21 19:37] VITALS: BP 122/70; PULSE 78; RESP 19; TEMP 37.1; O2SAT 98; BMI 25.1
[2021-09-21] MEDS: Ibuprofen 800 MG TABLET PO (21:20)
--- NOTE | 2021-09-21 21:29 | ED_ITS ---
HPI - General Adult General Chief complaint: Extremity Problem Stated complaint: R arm pain/work INJ Time Seen by Provider: 09/21/21 21:00 Source: patient Mode of arrival: ambulatory Limitations: no limitations History of Present Illness HPI narrative: 21-year-old male presents to ED for right elbow pain after falling and hitting elbow on the wall. Patient denies hitting head or loss of consciousness. Patient denies having any chest pain, headache, dizziness, shortness of breath, abdominal pain before falling. Patient states he triple over a stool. Related Data Previous Rx's Medication Instructions Recorded clonidine HCl 0.1 mg tablet 0.05 mg PO BID PRN 30 Days #30 tab 04/19/21 hydroxyzine HCl 25 mg tablet 25 mg PO Q6H PRN 30 Days #60 tab 04/19/21 lamotrigine 25 mg tablet See Rx Instructions .ROUTE 04/19/21 .COMPLEX 30 Days #53 tab mirtazapine 15 mg tablet 15 mg PO BEDTIME 30 Days #30 tab 04/19/21 trazodone 50 mg tablet 50 mg PO BEDTIME PRN 30 Days #30 04/19/21 tab clonidine HCl 0.1 mg tablet 0.05 mg PO BID PRN 30 Days #30 tab 05/20/21 hydroxyzine pamoate 50 mg capsule 50 mg PO BID PRN 30 Days #60 cap 05/20/21 (Vistaril) lamotrigine 25 mg tablet (Lamictal) 75 mg PO DAILY 30 Days #90 tab 05/20/21 trazodone 50 mg tablet 50 mg PO BEDTIME PRN 30 Days #30 05/20/21 tab naproxen 500 mg tablet 500 mg PO BID PRN 10 Days #20 tab 09/21/21 Allergies Allergy/AdvReac Type Severity Reaction Status Date / Time No Known Allergies Allergy Verified 09/21/21 18:54 Review of Systems Review of Systems: Right elbow pain Yes all other systems are reviewed and are negative PMFSH Past Medical History Medical History (Updated 09/22/21 @ 00:01 by Chloe Varner) Asthma Depression Surgical History S/P tonsillectomy Social History Social History (System 08/26/21 @ 13:16 by Pamela Carlton) Household Members: Family Household Members Other:: 5 Housing: House Do you presently have visiting nurse or other home services: No Patient Tobacco Use Status: Never used Tobacco e-Cigarette/Vaping Use: Never Used Substance Use Type: Marijuana and Caffiene Advance Directives: No Advance Directives Information Provided: No service: No Sexual orientation: Straight/Heterosexual Physical Exam ED Vital Signs: Vital Signs - 24 hr 09/21/21 19:37 Temperature 98.8 F Pulse Rate 78 Respiratory Rate 19 Blood Pressure 122/70 Pulse Oximetry 98 BMI result Body Mass Index 25.1 Const General: cooperative, healthy appearing, comfortable, no acute distress, well developed, alert, awake and Physically active Orientation/consciousness: oriented to person, oriented to place, oriented to time and patient oriented x3 HENMT Head: Yes normal to inspection, Yes No palpable skull fracture present, Yes normocephalic, Yes atraumatic and No abrasion Ears: hearing grossly normal bilaterally, external ears normal, TM's normal bilaterally, EAC's normal, mastoids normal and no periauricular adenopathy General nose exam: Normal external nose present and Normal nares present Face and sinus: Yes normal facial exam Eyes General: appearance normal, both eyes and all related structures Neck Neck: Yes normal visual inspection, Yes full ROM, Yes no lymphadenopathy, Yes no meningeal signs, Yes trachea midline, Yes supple, No anterior neck swelling and No tender Chest Chest palpation & inspection: normal inspection of the chest and normal palpation of entire chest wall Resp Effort & Inspection: normal respiratory effort and able to speak in complete sentences Auscultation: clear to auscultation bilaterally Cardio Jugular venous distension: no JVD Heart sounds: S1 normal heart sound present and S2 normal heart sound present GI Inspection: Yes normal to inspection and No abdominal wall ecchymosis Palpation (GI): Soft to palpation, not firm, nontender, no guarding and not rigid General: No CVA tenderness and Yes no CVA tenderness Back/Spine/Pelvis Back: no CVA tenderness, No CVA tenderness and No sacral edema Skin General skin exam: no rashes or lesions noted and elasticity normal Neuro General: oriented to person, oriented to place, oriented to time, patient oriented x3, gait normal, no meningeal signs and CN's II-XI intact bilaterally Extrem General: Yes normal to inspection and Yes full ROM Shoulder/upper arm images: 1. Positive for tenderness on palpation. Negative for any ecchymosis, deformity, swelling, or crepitus. Positive for slight skin irritation but negative for any warmth or erythema with blanching. Motor/neuro/vascular exam is intact of right upper extremity. Psych Appearance: grossly normal, well kempt and not disheveled Course Course Course Narrative: Right elbow x-ray ordered. Reevaluation(s) Reevaluation #1: Elbow x-ray were negative for any fracture. History physical exam does not indicate cellulitis, bursitis, DVT, or any arterial occlusion. Patient placed in sulaiman wrap Time: 21:34 Medical Decision Making MDM Narrative Medical decision making narrative: Elbow contusion Discharge Plan Discharge Clinical Impression: Contusion of elbow, right Patient Disposition: Home, Self-Care Instructions: Contusion in Adults (ED) Additional Instructions: The x-ray came back negative for fracture. You will be discharged with pain medication. He will be given number of work connection for follow-up. Return to the ED for upper extremity swelling, redness, warmth, coolness, bluish black discoloration, worsening pain, inability to move extremity, coldness, hotness or any other concerning symptoms. Recommend rest and ice with elevation the 1st 24 hours. After 24 hours warm compresses can be used an area. Prescriptions: New naproxen 500 mg tablet 500 mg PO BID PRN (Reason: pain) 10 Days Qty: 20 0RF No Action lamotrigine 25 mg Tablet See Rx Instructions .ROUTE .COMPLEX 30 Days Qty: 53 0RF Rx Instructions: take 1 tab daily for 7 days, then take 2 tabs daily mirtazapine 15 mg Tablet 15 mg PO BEDTIME 30 Days Qty: 30 0RF trazodone 50 mg Tablet 50 mg PO BEDTIME PRN (Reason: Insomnia) 30 Days Qty: 30 0RF hydroxyzine HCl 25 mg Tablet 25 mg PO Q6H PRN (Reason: Anxiety) 30 Days Qty: 60 0RF clonidine HCl 0.1 mg tablet 0.05 mg PO BID PRN (Reason: anxiety/agitation) 30 Days Qty: 30 0RF Rx Instructions: take 1/2 tab twice a day as needed for anxiety/agitation; may take 1 full tab trazodone 50 mg tablet 50 mg PO BEDTIME PRN (Reason: insomnia) 30 Days Qty: 30 0RF lamotrigine [Lamictal] 25 mg tablet 75 mg PO DAILY 30 Days Qty: 90 0RF hydroxyzine pamoate [Vistaril] 50 mg capsule 50 mg PO BID PRN (Reason: anxiety) 30 Days Qty: 60 0RF clonidine HCl 0.1 mg tablet 0.05 mg PO BID PRN (Reason: moderate anxiety) 30 Days Qty: 30 0RF Referrals: [facility] [Provider Group] (Right elbow contusion) Stand Alone Forms: Work/School Release Interventions: ED Discharge Assessment Last Done: 09/21/21 21:58 Discharge Date/Time: 09/21/21 22:00 Print Language: Micronesian
== END 2021-09-21 22:00 | disposition home or self-care (01) ==
PROVIDERS: Emergency Provider Internal Medicine
DX: S50.01XA Contusion of right elbow, initial encounter (principal); W18.41XA Slipping, tripping and stumbling without falling due to stepping on object, initial encounter; Y93.89 Activity, other specified; Y92.019 Unspecified place in single-family (private) house as the place of occurrence of the external cause; Y99.9 Unspecified external cause status
CPT/HCPCS: 73080; 99283

== ENCOUNTER 2022-04-03 21:57 | Emergency (ER) | payer OTHER, SELFPAY ==
--- NOTE | ~2022-04-03 | XR_ITS ---
EXAMINATION: XR CHEST CLINICAL INFORMATION: Right lower lobe crackles COMPARISON: 06/08/2021 TECHNIQUE: Frontal view of the chest was obtained. FINDINGS: No significant abnormality is noted involving the heart, lungs, mediastinum, bony thorax or soft tissues. XR/XR chest 1V IMPRESSION: Unremarkable examination.
[2022-04-03 22:41] VITALS: BP 129/82; PULSE 99; RESP 20; TEMP 37.1; O2SAT 98; BMI 37.0
[2022-04-03 23:02] LABS: COVID-19 Test Positive (Negative)
[2022-04-03 23:06] LABS: Influenza A Negative (Negative); Influenza B2 Negative (Negative)
--- OUTSIDE RECORDS SUMMARY | 2022-04-03 23:11 | XMS_ITS | Continuity of Care Document ---
:2000 Author Organization [facility] Address [address] [place] [id number]- Care Team Providers Name Role Phone Shazia BARNETT, Johana Brian Primary Care Physician Encounter [facility] Date(s): 05/12/21 - 07/14/[address] [id number] Attending Physician: Not on Staff, Attending MD Allergies, Adverse Reactions, Alerts No Known Allergies Medications ibuprofen 400 mg oral tablet 400 mg, 1, tablet, By Mouth, Every 6 hours, PRN, # 60 tablet, Refills 0, Tot. Refills 0, Maintenance, for pain, 08/10/16 14:23:23, Print Requisition Start Date: 08/10/16 Status: Orderedondansetron 4 mg oral tablet, disintegrating 1 to 2 tablet, By Mouth, Every 6 hours, PRN Nausea & Vomiting, # 15 tablet, 0 Refills, Maintenance, 05/28/17 10:28:57 Start Date: 05/28/17 Status: OrderedTylenol 325 mg oral tablet 650 mg, 2, tablet, By Mouth, Every 6 hours, PRN, # 120 tablet, Refills 0, Tot. Refills 0, Maintenance, for pain, 08/10/16 14:19:12, Print Requisition Start Date: 08/10/16 Status: Ordered
--- OUTSIDE RECORDS SUMMARY | 2022-04-03 23:11 | XMS_ITS | Continuity of Care Document ---
:2000 Author Organization [facility] Address [address] [place] [id number]- Care Team Providers Name Role Phone Shazia BARNETT, Johana Brian Primary Care Physician [phone] Encounter [facility] Date(s): 06/14/21 - 07/14/[address] [id number] Attending Physician: AdmBebeto melchor Admitting Physician: Admtr, Bebeto Referring Physician: Admtr, [id number] Allergies, Adverse Reactions, Alerts No Known Allergies [...]
--- OUTSIDE RECORDS SUMMARY | 2022-04-03 23:11 | XMS_ITS | Continuity of Care Document ---
:2000 Author Organization [facility] Address [address] [place] [id number]- Care Team Providers Name Role Phone Shazia BARNETT, Johana Brian Primary Care Physician [phone] Encounter [facility] Date(s): 04/23/21 - 05/23/[address] [address] Allergies, Adverse Reactions, Alerts Substance Reaction Severity Status NKA Active Medications ibuprofen 400 mg oral tablet 400 [...]
--- NOTE | 2022-04-03 23:49 | ED.URI ---
HPI - URI/Sore Throat General Chief Complaint: Upper Respiratory Symptoms Stated Complaint: Flu like symptoms Time Seen by Provider: 04/03/22 23:07 Source: patient Mode of arrival: ambulatory Limitations: no limitations History of Present Illness HPI Narrative: This is a 22-year-old male presenting to the emergency department with complaints of 4 days of progressively worsening shortness of breath, nonproductive cough, diffuse headache, body aches and pains, fatigue, malaise. Patient tells me that this all came on suddenly. He reports that his headache feels like his typical, without vision changes, dizziness or trauma. Patient not on blood thinners. Patient reports that he feels short of breath when he coughs. He tells me his cough is nonproductive however strong he tells me when he has coughing fits he experiences chest discomfort however when he is not coughing he denies chest pain or discomfort. He tells me few days ago he spit up blood however this only happened once and has not been happening ever since. He denies fevers, chills, dizziness, vision changes, abdominal pain, nausea, vomiting. Denies sick contacts. Vaccinated with COVID vaccine x2. Tells me he has had COVID twice. Related Data Previous Rx's Medication Instructions Recorded clonidine HCl 0.1 mg tablet 0.05 mg PO BID PRN 04/19/21 anxiety/agitation 30 days #30 tabs hydroxyzine HCl 25 mg tablet 25 mg PO Q6H PRN Anxiety 30 days 04/19/21 #60 tabs lamotrigine 25 mg tablet See Rx Instructions .Route 04/19/21 .COMPLEX 30 days #53 tabs mirtazapine 15 mg tablet 15 mg PO BEDTIME 30 days #30 tabs 04/19/21 trazodone 50 mg tablet 50 mg PO BEDTIME PRN Insomnia 30 04/19/21 days #30 tabs clonidine HCl 0.1 mg tablet 0.05 mg PO BID PRN moderate 05/20/21 anxiety 30 days #30 tabs hydroxyzine pamoate 50 mg capsule 50 mg PO BID PRN anxiety 30 days 05/20/21 (Vistaril) #60 caps lamotrigine 25 mg tablet (Lamictal) 75 mg PO DAILY 30 days #90 tabs 05/20/21 trazodone 50 mg tablet 50 mg PO BEDTIME PRN insomnia 30 05/20/21 days #30 tabs naproxen 500 mg tablet 500 mg PO BID PRN pain 10 days #20 09/21/21 tabs benzonatate 100 mg capsule 100 mg PO BID PRN cough #20 caps 04/03/22 prednisone 20 mg tablet 40 mg PO DAILY 5 days #10 tabs 04/03/22 Allergies Allergy/AdvReac Type Severity Reaction Status Date / Time No Known Allergies Allergy Verified 04/03/22 22:41 Review of Systems Review of Systems: Constitutional : No Weight loss, No Fever, No Chills, + Fatigue, + Malaise ENT/Mouth : No sore throat, No Rhinorrhea Eyes: No Eye Pain, No Swelling, No Redness Cardiovascular : No Chest Pain, + SOB, No Dyspnea on Exertion, No Orthopnea, No Edema, No Palpitations Respiratory : + Cough, No Sputum, No Wheezing Gastrointestinal : No Nausea, No Vomiting, No Diarrhea, No Constipation, No abdominal Pain, No Hematochezia, No Melena Genitourinary : No Dysuria, No Urinary Frequency, No Hematuria, Musculoskeletal : + joint pain, + Myalgias, No Joint Swelling Skin : No Skin Lesions, No rash Neuro : No Weakness, No Numbness, No Dizziness, + Headache Psych : No Anxiety/Panic, No Depression All other systems reviewed and are negative Yes all other systems are reviewed and are negative [facility] Past Medical History Attestation statement: The following information was validated with the patient. Source: old records reviewed and nursing notes reviewed Medical History Asthma Depression Surgical History S/P tonsillectomy Social History Social History Household Members: Family Household Members Other:: 5 Housing: House Do you presently have visiting nurse or other home services: No Patient Tobacco Use Status: Never used Tobacco e-Cigarette/Vaping Use: Never Used Substance Use Type: Marijuana and Caffiene Advance Directives: No Advance Directives Information Provided: No service: No Sexual orientation: Straight/Heterosexual Physical Exam Vital Signs: Vital Signs: Last Vital Signs Temp 98.8 F 04/03/22 22:41 Pulse 99 04/03/22 22:41 Resp 20 04/03/22 22:41 BP 129/82 04/03/22 22:41 Pulse Ox 98 04/03/22 22:41 O2 Del Method 04/03/22 22:41 BMI result Body Mass Index 37.0 vss Appearance: Alert.? Oriented X3.? No acute distress.? Head: Normocephalic, atraumatic, no step-offs or deformities Eyes: Pupils equal, round and reactive to light.? CVS: Normal heart rate and rhythm.? Pulses normal.? Respiratory: No respiratory distress.? Breath sounds normal.? Abdomen: Soft and nontender.? Skin: Skin warm and dry.? Normal skin color.? Normal skin turgor.? Extremities: No lower extremity edema.? No calf ttp, negative Gibran bilaterally. 5/5 strength to bilateral upper and lower extremities Neuro: Oriented X 3.? No motor deficit.? No sensory deficit. CN 2-12 intact Course Reevaluation(s) Reevaluation #1: X-ray within normal limits. Vital signs stable. Patient appears well no acute distress. Will be discharged home with CDC guidelines. Advised him to discuss PACs COVID with his PCP, he tells me he will think about it and he will discuss this with his PCP. This time I feel comfortable discharge home with prompt PCP follow-up. Advised to return with new or worsening symptoms, outlined on worrisome signs and symptoms and when to return. Comfortable discharge Time: 00:49 MDM - URI/Sore Throat MDM Narrative Medical decision making narrative: 532 22-year-old male presents with upper respiratory symptoms x4 days. Vaccinated against COVID. Denies sick contacts. Physical examination with faint crackles to the right lower lobe. Regular rate and rhythm. Abdomen soft nontender nondistended. Neuro exam nonfocal. Patient ambulating with steady gait normal coordination, normal [id number], [id number]-um-dgod, steady tandem gait. Likely all secondary to viral etiology. Unlikely intracranial hemorrhage, posterior stroke, pneumonia, PE, ACS. No signs of respiratory distress. Plan at this time is to obtain a COVID swab and chest x-ray Medical Records Attestation: I reviewed the patient's medical records. Lab Data Attestation: I reviewed the patient's lab results. Labs: Lab Results 04/03/22 04/03/22 Range/Units 22:48 22:48 COVID-19 ([facility]) Positive A (Negative) COVID-19 Clin Com See Note Influenza Type A (CHUCK) Negative (Negative) Influenza Type B (CHUCK) Negative (Negative) Influenza A & B Note See Note Critical Care Time Critical Care Time Critical Care Time: No Discharge Plan Discharge Clinical Impression: COVID-19 Patient Disposition: Home, Self-Care Instructions: COVID-19 (Coronavirus Disease 2019) (ED) Additional Instructions: Take your medications as prescribed. If you were prescribed antibiotics today, it is important that you take your medication to their entirety, do not skip any doses, do not finish them early. Today you tested positive for COVID-19. Take Ibuprofen or Tylenol as needed for fevers or body aches. Quarantine for 5 days and ensure you wear a mask. After 5 days you should wear a mask for 5 days after that. Practice social distancing and good hand hygiene. Drink plenty of fluids. Follow-up with your primary care provider this week. Return to the emergency department with new or worsening symptoms. In case of emergency call 911 You can purchase a pulse oximeter from your local pharmacy or grocery store, and monitor your oxygen saturation if it goes below 94% you should return to the emergency department for further evaluation. ?XR/XR chest 1V IMPRESSION: Unremarkable examination. Prescriptions: New prednisone 20 mg tablet 40 mg PO DAILY 5 Days Qty: 10 0RF benzonatate 100 mg capsule 100 mg PO BID PRN (Reason: cough) Qty: 20 0RF No Action lamotrigine 25 mg Tablet See Rx Instructions .ROUTE .COMPLEX 30 Days Qty: 53 0RF Rx Instructions: take 1 tab daily for 7 days, then take 2 tabs daily mirtazapine 15 mg Tablet 15 mg PO BEDTIME 30 Days Qty: 30 0RF trazodone 50 mg Tablet 50 mg PO BEDTIME PRN (Reason: Insomnia) 30 Days Qty: 30 0RF hydroxyzine HCl 25 mg Tablet 25 mg PO Q6H PRN (Reason: Anxiety) 30 Days Qty: 60 0RF clonidine HCl 0.1 mg tablet 0.05 mg PO BID PRN (Reason: anxiety/agitation) 30 Days Qty: 30 0RF Rx Instructions: take 1/2 tab twice a day as needed for anxiety/agitation; may take 1 full tab trazodone 50 mg tablet 50 mg PO BEDTIME PRN (Reason: insomnia) 30 Days Qty: 30 0RF lamotrigine [Lamictal] 25 mg tablet 75 mg PO DAILY 30 Days Qty: 90 0RF hydroxyzine pamoate [Vistaril] 50 mg capsule 50 mg PO BID PRN (Reason: anxiety) 30 Days Qty: 60 0RF clonidine HCl 0.1 mg tablet 0.05 mg PO BID PRN (Reason: moderate anxiety) 30 Days Qty: 30 0RF naproxen 500 mg tablet 500 mg PO BID PRN (Reason: pain) 10 Days Qty: 20 0RF Referrals: ED Physician,Generic [Physician] - 2 days
--- NOTE | 2022-04-04 01:32 | PC.NURSE ---
pt a&o, denies sob or chest pain . Reviewed discharge instructions with pt. Pt verbalized understanding.
== END 2022-04-04 01:34 | disposition home or self-care (01) ==
PROVIDERS: Emergency Provider Student in an Organized Health Care Education/Training Program
DX: U07.1 COVID-19 (principal); R06.02 Shortness of breath; R05.9 Cough, unspecified; R51.9 Headache, unspecified; M79.10 Myalgia, unspecified site
CPT/HCPCS: 71045; 87502; 87635; 99282; 99283

== ENCOUNTER 2022-09-26 16:18 | Emergency (ER) | payer OTHER, SELFPAY ==
--- NOTE | ~2022-09-26 | XR_ITS ---
EXAMINATION: XR KNEE, LEFT CLINICAL INFORMATION: Left knee injury. Pain COMPARISON: None available. TECHNIQUE: Four views of the left knee. FINDINGS: There is minimal loss of lateral compartment joint space with periarticular spurring likely old injury. The medial and patellofemoral compartment joint space and normal. No acute fracture, dislocation or loose body seen. There is no joint effusion. XR/XR knee LT 4V IMPRESSION: No acute fracture or dislocation. Mild degenerative changes with periarticular spurring lateral compartment
[2022-09-26 16:22] VITALS: BP 149/77; PULSE 78; RESP 18; TEMP 36.7; O2SAT 99; BMI 41.5
--- NOTE | 2022-09-26 16:24 | ED_ITS ---
HPI - General Adult General Chief complaint: Extremity Injury, Lower <DIMAS Wilkinson - Last Filed: 09/26/22 16:26> Stated complaint: left knee injury at work <DIMAS Wilkinson - Last Filed: 09/26/22 16:26> Time Seen by Provider: 09/26/22 17:49 <DIMAS Wilkinson - Last Filed: 09/26/22 16:26> Source: patient <Cj Beckman MD - Last Filed: 09/26/22 18:09> Mode of arrival: ambulatory <Cj Beckman MD - Last Filed: 09/26/22 18:09> Limitations: no limitations <Cj Beckman MD - Last Filed: 09/26/22 18:09> History of Present Illness HPI narrative: 22-year-old male presents with acute left knee pain. Patient was at work when he jumped off the truck. He developed left knee pain acutely. The pain is moderate to severe. It is worse with ambulation. The pain does not radiate. It is not associated with any deformity or swelling. There was no prior treatment. Patient does feel like his knee is giving out from under him. <Cj Beckman MD - Last Filed: 09/26/22 18:09> Related Data Home medications: Previous Rx's Medication Instructions Recorded clonidine HCl 0.1 mg tablet 0.05 mg PO BID PRN 04/19/21 anxiety/agitation 30 days #30 tabs hydroxyzine HCl 25 mg tablet 25 mg PO Q6H PRN Anxiety 30 days 04/19/21 #60 tabs lamotrigine 25 mg tablet See Rx Instructions .Route 04/19/21 .COMPLEX 30 days #53 tabs mirtazapine 15 mg tablet 15 mg PO BEDTIME 30 days #30 tabs 04/19/21 trazodone 50 mg tablet 50 mg PO BEDTIME PRN Insomnia 30 04/19/21 days #30 tabs clonidine HCl 0.1 mg tablet 0.05 mg PO BID PRN moderate 05/20/21 anxiety 30 days #30 tabs hydroxyzine pamoate 50 mg capsule 50 mg PO BID PRN anxiety 30 days 05/20/21 (Vistaril) #60 caps lamotrigine 25 mg tablet (Lamictal) 75 mg PO DAILY 30 days #90 tabs 05/20/21 trazodone 50 mg tablet 50 mg PO BEDTIME PRN insomnia 30 05/20/21 days #30 tabs naproxen 500 mg tablet 500 mg PO BID PRN pain 10 days #20 09/21/21 tabs benzonatate 100 mg capsule 100 mg PO BID PRN cough #20 caps 04/03/22 prednisone 20 mg tablet 40 mg PO DAILY 5 days #10 tabs 04/03/22 ibuprofen 600 mg tablet 600 mg PO TID PRN pain #20 tabs 09/26/22 <DIMAS Wilkinson - Last Filed: 09/26/22 16:26> Allergies/adverse reactions: Allergies Allergy/AdvReac Type Severity Reaction Status Date / Time No Known Allergies Allergy Verified 04/03/22 22:41 <DIMAS Wilkinson - Last Filed: 09/26/22 16:26> [facility] Past Medical History Medical History: Medical History Asthma Depression <DIMAS Wilkinson - Last Filed: 09/26/22 16:26> Surgical History: Surgical History S/P tonsillectomy <DIMAS Wilkinson - Last Filed: 09/26/22 16:26> Social History Social History: Social History Household Members: Family Household Members Other:: 5 Housing: House Do you presently have visiting nurse or other home services: No Patient Tobacco Use Status: Never used Tobacco e-Cigarette/Vaping Use: Never Used Substance Use Type: Marijuana and Caffiene service: No Sexual orientation: Straight/Heterosexual <DIMAS Wilkinson - Last Filed: 09/26/22 16:26> Physical Exam ED Vital Signs: Vital Signs - 24 hr 09/26/22 16:22 09/26/22 17:56 Temperature 98.0 F Pulse Rate 78 83 Respiratory Rate 18 16 Blood Pressure 149/77 H 120/64 Pulse Oximetry 99 95 Oxygen Delivery Method Room Air BMI result Body Mass Index 41.5 <DIMAS Wilkinson Last Filed: 09/26/22 16:26> Vital Signs - 24 hr 09/26/22 16:22 09/26/22 17:56 Temperature 98.0 F Pulse Rate 78 83 Respiratory Rate 18 16 Blood Pressure 149/77 H 120/64 Pulse Oximetry 99 95 Oxygen Delivery Method Room Air BMI result Body Mass Index 41.5 <Cj Beckman MD - Last Filed: 09/26/22 18:09> GEN: Well developed, no acute distress, alert, oriented HEENT: Normocephalic, atraumatic, normal external ears, nose appears normal Eyes: Normal to appearance Neck: Supple, no lymphadenopathy Respiratory: Talks in complete sentences, no respiratory distress Extremities: No clubbing cyanosis or edema, no joint laxity on the left knee, tenderness over the lateral aspect of the joint normal passive range of motion, reduced active range of motion secondary to pain and discomfort Neurologic: No focal neurologic deficits, cranial nerves 2-12 intact, gait normal Skin: No rash <Cj Beckman MD - Last Filed: 09/26/22 18:09> Course Course Course Narrative: RME - 22yo male presenting with left knee pain which started today. Patient stated he stepped weird at work today. States he is having pain with bearing weight. Denies previous injury to the knee. Denies hearing or feeling a pop sensation. Plan: XR <DIMAS Wilkinson - Last Filed: 09/26/22 16:26> Reevaluation(s) Reevaluation #1: X-rays negative for acute fracture. Will put patient on crutches. Most likely a sprain or strain or contusion patient will follow-up with occupational health and/or orthopedics. <Cj Beckman MD - Last Filed: 09/26/22 18:09> Time: 18:08 <Cj Beckman MD - Last Filed: 09/26/22 18:09> Medical Decision Making Medical Decision Making MDM Narrative: 22-year-old male presents with acute left traumatic knee pain. There are no other injuries. Examination was benign except for some tenderness over the lateral aspect of the joint <Cj Beckman MD - Last Filed: 09/26/22 18:09> Differential Diagnosis Differential Diagnoses: The differential diagnosis associated with the presentation includes (Contusion, sprain, strain, internal knee derangement, fracture) <Cj Beckman MD - Last Filed: 09/26/22 18:09> Acute left knee pain <Cj Beckman MD - Last Filed: 09/26/22 18:09> Independent Interpretation I performed an independent interpretation of an: Plain X-Ray (Left knee: No acute traumatic injury) <Cj Beckman MD - Last Filed: 09/26/22 18:09> Prescription Management I considered prescription management with: Pain Medication <Cj Beckman MD - Last Filed: 09/26/22 18:09> Discharge Plan Discharge Clinical Impression: Acute knee pain <DIMAS Wilkinson - Last Filed: 09/26/22 16:26> Patient Disposition: Home, Self-Care <DIMAS Wilkinson - Last Filed: 09/26/22 16:26> Instructions: Crutch Instructions (ED), Knee Pain (ED), Ice Pack Application (ED) <DIMAS Wilkinson Last Filed: 09/26/22 16:26> Additional Instructions: For pain: Ibuprofen 600 mg three times per day for 7-10 days then as needed. Take with food Tylenol 1000 mg every 6 hours as needed for pain Recommendation for occupational health evaluation: [address] [place] [id number] <DIMAS Wilkinson - Last Filed: 09/26/22 16:26> Prescriptions: New ibuprofen 600 mg tablet 600 mg PO TID PRN (Reason: pain) Qty: 20 0RF No Action lamotrigine 25 mg Tablet See Rx Instructions .ROUTE .COMPLEX 30 Days Qty: 53 0RF Rx Instructions: take 1 tab daily for 7 days, then take 2 tabs daily mirtazapine 15 mg Tablet 15 mg PO BEDTIME 30 Days Qty: 30 0RF trazodone 50 mg Tablet 50 mg PO BEDTIME PRN (Reason: Insomnia) 30 Days Qty: 30 0RF hydroxyzine HCl 25 mg Tablet 25 mg PO Q6H PRN (Reason: Anxiety) 30 Days Qty: 60 0RF clonidine HCl 0.1 mg tablet 0.05 mg PO BID PRN (Reason: anxiety/agitation) 30 Days Qty: 30 0RF Rx Instructions: take 1/2 tab twice a day as needed for anxiety/agitation; may take 1 full tab trazodone 50 mg tablet 50 mg PO BEDTIME PRN (Reason: insomnia) 30 Days Qty: 30 0RF lamotrigine [Lamictal] 25 mg tablet 75 mg PO DAILY 30 Days Qty: 90 0RF hydroxyzine pamoate [Vistaril] 50 mg capsule 50 mg PO BID PRN (Reason: anxiety) 30 Days Qty: 60 0RF clonidine HCl 0.1 mg tablet 0.05 mg PO BID PRN (Reason: moderate anxiety) 30 Days Qty: 30 0RF naproxen 500 mg tablet 500 mg PO BID PRN (Reason: pain) 10 Days Qty: 20 0RF prednisone 20 mg tablet 40 mg PO DAILY 5 Days Qty: 10 0RF benzonatate 100 mg capsule 100 mg PO BID PRN (Reason: cough) Qty: 20 0RF <DIMAS Wilkinson - Last Filed: 09/26/22 16:26> Referrals: [facility] [Provider Group] <DIMAS Wilkinson - Last Filed: 09/26/22 16:26> Stand Alone Forms: Work/School Release <DIMAS Wilkinson - Last Filed: 09/26/22 16:26>
[2022-09-26 17:56] VITALS: BP 120/64; PULSE 83; RESP 16; O2SAT 95
[2022-09-26] MEDS: Acetaminophen 325 MG TABLET 975 MG PO (18:16)
[2022-09-26] MEDS: Ibuprofen 600 MG TABLET PO (18:16)
--- NOTE | 2022-09-26 18:25 | PC.NURSE ---
pt left knee wrapped in sulaiman bandage for comfort and support, crutch training provided. pt verbalizes understanding that he will need to follow up with [facility] for further eval and tx
== END 2022-09-26 18:27 | disposition home or self-care (01) ==
PROVIDERS: Emergency Provider Emergency Medicine
DX: Z04.2 Encounter for examination and observation following work accident (principal); M25.562 Pain in left knee
CPT/HCPCS: 73564; 99283

== ENCOUNTER 2022-10-15 23:53 | Emergency (ER) | payer OTHER, SELFPAY ==
[2022-10-16 00:09] VITALS: BP 141/85; PULSE 92; RESP 20; TEMP 36.4; O2SAT 93; BMI 42.6
[2022-10-16 00:51] LABS: COVID-19 Test Negative (Negative); IDNOW Serial# 08D9AD1C; IDNOW Serial# BCCEAD1C; Influenza A Negative (Negative); Influenza B2 Negative (Negative)
--- NOTE | 2022-10-16 02:03 | ED.ASTHMA ---
HPI - Asthma General Chief Complaint: Upper Respiratory Symptoms Stated Complaint: Flu Like Symptoms, SoB Time Seen by Provider: 10/16/22 01:48 Source: patient and family Mode of arrival: ambulatory History of Present Illness HPI Narrative: 22-year-old male who vapes presents with cough, congestion and shortness of breath for the past week. He denies any fevers or chills and reports history of asthma as a child. Related Data Previous Rx's Medication Instructions Recorded clonidine HCl 0.1 mg tablet 0.05 mg PO BID PRN 04/19/21 anxiety/agitation 30 days #30 tabs hydroxyzine HCl 25 mg tablet 25 mg PO Q6H PRN Anxiety 30 days 04/19/21 #60 tabs lamotrigine 25 mg tablet See Rx Instructions .Route 04/19/21 .COMPLEX 30 days #53 tabs mirtazapine 15 mg tablet 15 mg PO BEDTIME 30 days #30 tabs 04/19/21 trazodone 50 mg tablet 50 mg PO BEDTIME PRN Insomnia 30 04/19/21 days #30 tabs clonidine HCl 0.1 mg tablet 0.05 mg PO BID PRN moderate 05/20/21 anxiety 30 days #30 tabs hydroxyzine pamoate 50 mg capsule 50 mg PO BID PRN anxiety 30 days 05/20/21 (Vistaril) #60 caps lamotrigine 25 mg tablet (Lamictal) 75 mg PO DAILY 30 days #90 tabs 05/20/21 trazodone 50 mg tablet 50 mg PO BEDTIME PRN insomnia 30 05/20/21 days #30 tabs naproxen 500 mg tablet 500 mg PO BID PRN pain 10 days #20 09/21/21 tabs benzonatate 100 mg capsule 100 mg PO BID PRN cough #20 caps 04/03/22 prednisone 20 mg tablet 40 mg PO DAILY 5 days #10 tabs 04/03/22 ibuprofen 600 mg tablet 600 mg PO TID PRN pain #20 tabs 09/26/22 prednisone 50 mg tablet 50 mg PO DAILY 4 days #4 tabs 10/16/22 Allergies Allergy/AdvReac Type Severity Reaction Status Date / Time No Known Allergies Allergy Verified 04/03/22 22:41 Review of Systems Review of Systems: Pertinent positives and negatives as stated in HPI PMFSH Past Medical History Source: nursing notes reviewed Medical History Asthma Depression Surgical History S/P tonsillectomy Social History Social History Household Members: Family Household Members Other:: 5 Housing: House Do you presently have visiting nurse or other home services: No Patient Tobacco Use Status: Never used Tobacco e-Cigarette/Vaping Use: Never Used Substance Use Type: Marijuana and Caffiene Advance Directives: No Advance Directives Information Provided: Yes service: No Sexual orientation: Straight/Heterosexual Physical Exam Vital Signs: Vital Signs: Last Vital Signs Temp 97.5 F 10/16/22 00:09 Pulse 92 10/16/22 00:09 Resp 20 10/16/22 00:09 BP 141/85 H 10/16/22 00:09 Pulse Ox 93 10/16/22 00:09 O2 Del Method Room Air 10/16/22 00:09 BMI result Body Mass Index 42.6 VITAL SIGNS: Reviewed. GENERAL: Well developed, well nourished, in no acute distress. HEAD: Normocephalic/atraumatic EYES: PERRLA, EOMI EARS: Ext canals without abnormality, TMs non-bulging and non-erythematous NOSE: Nares patent bilateral OROPHARYNX: no oral lesions noted, posterior pharynx clear and non-erythematous without noted tonsillar enlargement/erythema/exudates NECK: Supple, no adenopathy LUNGS: Good inspiratory effort but noted expiratory wheeze bilaterally SpO2<93> CARDIOVASCULAR: Regular rate and rhythm without noted murmurs ABDOMEN: Soft, non-tender, non-distended with bowel sounds. MUSCULOSKELETAL: No tenderness, deformities, or effusions noted on gross inspection. EXTREMITIES: No cyanosis, clubbing or edema. SKIN: Inspection of the skin reveals no rashes NEUROLOGIC: Alert and oriented x 4. Strength and sensation to light touch were grossly intact x 4. Medications Administered Discontinued Medications Generic Name Dose Route Start Last Admin Trade Name Freq PRN Reason Stop Dose Admin Albuterol Sulfate 4 puff 10/16/22 02:03 10/16/22 02:17 Albuterol Sulfate 90 Mcg 8 Gm Inhaler INHALE 10/16/22 02:04 4 puff ONCE ONE Administration Prednisone 50 mg 10/16/22 02:03 10/16/22 02:17 Prednisone 10 Mg Tablet PO 10/16/22 02:04 50 mg ONCE ONE Administration Medical Decision Making Medical Decision Making MDM Narrative: 22-year-old male with history and clinical presentation consistent with suspected asthma likely contributed to by seasonal allergies and vaping. Patient received steroids and Ventolin inhaler puffs, re-evaluation states he is feeling much better, reviewed viral testing which is negative and he is otherwise discharged home in stable condition. Differential Diagnosis Please see the discussion above Lab Data Please see the discussion above Labs: Lab Results 10/16/22 10/16/22 Range/Units 00:18 00:18 COVID-19 ([facility]) Negative (Negative) COVID-19 Clin Com See Note Influenza Type A ([facility]) Negative (Negative) Influenza Type B ([facility]) Negative (Negative) Influenza A & B Note See Note External Record Review External record reviewed: Prior outpatient labs Discharge Plan Discharge Clinical Impression: Asthma, Engages in vaping Patient Disposition: Home, Self-Care Instructions: Asthma (ED), Allergies (ED) Additional Instructions: 1. Stop vaping. 2. Recommend starting daily Flonase (fluticasone) as well as Claritin (loratadine). Both of these medications are available [id number]. 3. Recommend using the Ventolin inhaler, every 4-6 hours as needed for shortness of breath or wheezing. 4. Complete the short course of steroids as prescribed. 5. Follow-up with your primary care provider on Monday morning. Return to the ER for any worsening symptoms. Prescriptions: New prednisone 50 mg tablet 50 mg PO DAILY 4 Days Qty: 4 0RF No Action lamotrigine 25 mg Tablet See Rx Instructions .ROUTE .COMPLEX 30 Days Qty: 53 0RF Rx Instructions: take 1 tab daily for 7 days, then take 2 tabs daily mirtazapine 15 mg Tablet 15 mg PO BEDTIME 30 Days Qty: 30 0RF trazodone 50 mg Tablet 50 mg PO BEDTIME PRN (Reason: Insomnia) 30 Days Qty: 30 0RF hydroxyzine HCl 25 mg Tablet 25 mg PO Q6H PRN (Reason: Anxiety) 30 Days Qty: 60 0RF clonidine HCl 0.1 mg tablet 0.05 mg PO BID PRN (Reason: anxiety/agitation) 30 Days Qty: 30 0RF Rx Instructions: take 1/2 tab twice a day as needed for anxiety/agitation; may take 1 full tab trazodone 50 mg tablet 50 mg PO BEDTIME PRN (Reason: insomnia) 30 Days Qty: 30 0RF lamotrigine [Lamictal] 25 mg tablet 75 mg PO DAILY 30 Days Qty: 90 0RF hydroxyzine pamoate [Vistaril] 50 mg capsule 50 mg PO BID PRN (Reason: anxiety) 30 Days Qty: 60 0RF clonidine HCl 0.1 mg tablet 0.05 mg PO BID PRN (Reason: moderate anxiety) 30 Days Qty: 30 0RF naproxen 500 mg tablet 500 mg PO BID PRN (Reason: pain) 10 Days Qty: 20 0RF prednisone 20 mg tablet 40 mg PO DAILY 5 Days Qty: 10 0RF benzonatate 100 mg capsule 100 mg PO BID PRN (Reason: cough) Qty: 20 0RF ibuprofen 600 mg tablet 600 mg PO TID PRN (Reason: pain) Qty: 20 0RF Interventions: ED Discharge Assessment Last Done: 10/16/22 03:02 Discharge Date/Time: 10/16/22 02:20
[2022-10-16] MEDS: predniSONE 10 MG TABLET 50 MG PO (02:17)
[2022-10-16] MEDS: Albuterol Sulfate 90 MCG 8 GM INHALER 4 PUFF INHALE (02:17)
== END 2022-10-16 02:20 | disposition home or self-care (01) ==
PROVIDERS: Emergency Provider Student in an Organized Health Care Education/Training Program
DX: J45.909 Unspecified asthma, uncomplicated (principal); U07.0 Vaping-related disorder; Z20.822 Contact with and (suspected) exposure to COVID-19; Z20.828 Contact with and (suspected) exposure to other viral communicable diseases
CPT/HCPCS: 87502; 87635; 99282

== ENCOUNTER 2022-11-05 20:35 | Emergency (ER) | payer OTHER, SELFPAY ==
[2022-11-05 20:47] VITALS: BP 130/75; PULSE 84; RESP 20; TEMP 36.9; O2SAT 95; BMI 40.7
--- NOTE | 2022-11-05 21:19 | ED.BACK ---
HPI - Back Pain/Injury General Chief Complaint: Back Pain/Injury Stated Complaint: lower back pain Time Seen by Provider: 11/05/22 21:04 Source: patient Mode of arrival: ambulatory History of Present Illness HPI Narrative: 22-year-old male with chronic back pain, worsening since yesterday, atraumatic and not associated with any fever, chills, nausea, vomiting, IVDA, bowel or bladder dysfunction, weakness in either lower extremity. Related Data Previous Rx's Medication Instructions Recorded clonidine HCl 0.1 mg tablet 0.05 mg PO BID PRN 04/19/21 anxiety/agitation 30 days #30 tabs hydroxyzine HCl 25 mg tablet 25 mg PO Q6H PRN Anxiety 30 days 04/19/21 #60 tabs lamotrigine 25 mg tablet See Rx Instructions .Route 04/19/21 .COMPLEX 30 days #53 tabs mirtazapine 15 mg tablet 15 mg PO BEDTIME 30 days #30 tabs 04/19/21 trazodone 50 mg tablet 50 mg PO BEDTIME PRN Insomnia 30 04/19/21 days #30 tabs clonidine HCl 0.1 mg tablet 0.05 mg PO BID PRN moderate 05/20/21 anxiety 30 days #30 tabs hydroxyzine pamoate 50 mg capsule 50 mg PO BID PRN anxiety 30 days 05/20/21 (Vistaril) #60 caps lamotrigine 25 mg tablet (Lamictal) 75 mg PO DAILY 30 days #90 tabs 05/20/21 trazodone 50 mg tablet 50 mg PO BEDTIME PRN insomnia 30 05/20/21 days #30 tabs benzonatate 100 mg capsule 100 mg PO BID PRN cough #20 caps 04/03/22 prednisone 20 mg tablet 40 mg PO DAILY 5 days #10 tabs 04/03/22 prednisone 50 mg tablet 50 mg PO DAILY 4 days #4 tabs 10/16/22 cyclobenzaprine 5 mg tablet 5 mg PO BEDTIME PRN muscle spasm 11/05/22 #4 tabs ketorolac 10 mg tablet 10 mg PO Q6H PRN pain 5 days #20 11/05/22 tabs Allergies Allergy/AdvReac Type Severity Reaction Status Date / Time No Known Allergies Allergy Verified 04/03/22 22:41 Review of Systems Review of Systems: Pertinent positives and negatives as stated in HPI PMFSH Past Medical History Source: nursing notes reviewed Medical History Asthma Depression Surgical History S/P tonsillectomy Social History Social History Household Members: Family Household Members Other:: 5 Housing: House Do you presently have visiting nurse or other home services: No Patient Tobacco Use Status: Never used Tobacco e-Cigarette/Vaping Use: Never Used Substance Use Type: Marijuana and Caffiene Advance Directives: No Advance Directives Information Provided: Yes service: No Sexual orientation: Straight/Heterosexual Physical Exam Vital Signs: Vital Signs: Last Vital Signs Temp 98.4 F 11/05/22 20:47 Pulse 84 11/05/22 20:47 Resp 20 11/05/22 20:47 BP 130/75 11/05/22 20:47 Pulse Ox 95 11/05/22 20:47 O2 Del Method Room Air 11/05/22 20:47 BMI result Body Mass Index 40.7 VITAL SIGNS: Reviewed. GENERAL: Well developed, well nourished, in no acute distress. HEAD: Normocephalic/atraumatic EYES: PERRLA, EOMI EARS: Ext canals without abnormality NOSE: Nares patent bilateral OROPHARYNX: no oral lesions noted, posterior pharynx clear NECK: Supple, no adenopathy LUNGS: Normal breath sounds. No adventitious sounds or accessory muscle use. SpO2<95> CARDIOVASCULAR: Regular rate and rhythm without noted murmurs ABDOMEN: Soft, non-tender, non-distended with bowel sounds. BACK: No midline vertebral tenderness or step-offs, left paraspinal discomfort on palpation over musculature MUSCULOSKELETAL: No tenderness, deformities, or effusions noted on gross inspection. EXTREMITIES: No cyanosis, clubbing or edema. SKIN: Inspection of the skin reveals no rashes NEUROLOGIC: Alert and oriented x 4. Strength and sensation to light touch were grossly intact x 4. Medical Decision Making Medical Decision Making MDM Narrative: 22-year-old male with acute on chronic back pain without red flag symptoms to suggest cauda equina or infectious process. There are no significant neurologic or motor issues. Patient will receive combination analgesics, lidocaine patch as well as muscle relaxant. I discussed with patient pursuing primary care establishment and discussion regarding referral to physical therapy. He is otherwise discharged home in stable condition. Differential Diagnosis Please see the discussion above Discharge Plan Discharge Clinical Impression: Left lumbar radiculopathy, Acute exacerbation of chronic low back pain Patient Disposition: Home, Self-Care Instructions: Lumbar Radiculopathy (ED), Back Pain (ED), Lower Back Exercises (ED) Additional Instructions: 1. Tylenol 1000 mg, orally, every 6 hours as needed for pain control. Do not exceed 4000 mg within 24 hours. 2. Lidocaine patch, apply to area of maximal tenderness as directed on the outside packaging. 3. Please establish a primary care provider at your earliest convenience to provide additional support and help and especially for referral to physical therapy as needed. Return to the ER for any worsening symptoms. Prescriptions: New ketorolac 10 mg tablet 10 mg PO Q6H PRN (Reason: pain) 5 Days Qty: 20 0RF Rx Instructions: Patient received Toradol in the emergency room cyclobenzaprine 5 mg tablet 5 mg PO BEDTIME PRN (Reason: muscle spasm) Qty: 4 0RF Discontinued naproxen 500 mg tablet 500 mg PO BID PRN (Reason: pain) 10 Days Qty: 20 0RF ibuprofen 600 mg tablet 600 mg PO TID PRN (Reason: pain) Qty: 20 0RF No Action lamotrigine 25 mg Tablet See Rx Instructions .ROUTE .COMPLEX 30 Days Qty: 53 0RF Rx Instructions: take 1 tab daily for 7 days, then take 2 tabs daily mirtazapine 15 mg Tablet 15 mg PO BEDTIME 30 Days Qty: 30 0RF trazodone 50 mg Tablet 50 mg PO BEDTIME PRN (Reason: Insomnia) 30 Days Qty: 30 0RF hydroxyzine HCl 25 mg Tablet 25 mg PO Q6H PRN (Reason: Anxiety) 30 Days Qty: 60 0RF clonidine HCl 0.1 mg tablet 0.05 mg PO BID PRN (Reason: anxiety/agitation) 30 Days Qty: 30 0RF Rx Instructions: take 1/2 tab twice a day as needed for anxiety/agitation; may take 1 full tab trazodone 50 mg tablet 50 mg PO BEDTIME PRN (Reason: insomnia) 30 Days Qty: 30 0RF lamotrigine [Lamictal] 25 mg tablet 75 mg PO DAILY 30 Days Qty: 90 0RF hydroxyzine pamoate [Vistaril] 50 mg capsule 50 mg PO BID PRN (Reason: anxiety) 30 Days Qty: 60 0RF clonidine HCl 0.1 mg tablet 0.05 mg PO BID PRN (Reason: moderate anxiety) 30 Days Qty: 30 0RF prednisone 20 mg tablet 40 mg PO DAILY 5 Days Qty: 10 0RF benzonatate 100 mg capsule 100 mg PO BID PRN (Reason: cough) Qty: 20 0RF prednisone 50 mg tablet 50 mg PO DAILY 4 Days Qty: 4 0RF
[2022-11-05] MEDS: Ketorolac Tromethamine 15 MG/ML VIAL IM (21:29)
[2022-11-05] MEDS: Acetaminophen 325 MG TABLET 975 MG PO (21:29)
[2022-11-05] MEDS: Lidocaine 4 % Patch ADH..PATCH 1 PATCH TRANSDERMA (21:29)
[2022-11-05] MEDS: Cyclobenzaprine HCl 5 MG TABLET PO (21:29)
== END 2022-11-05 21:49 | disposition home or self-care (01) ==
PROVIDERS: Emergency Provider Student in an Organized Health Care Education/Training Program
DX: M54.16 Radiculopathy, lumbar region (principal); G89.29 Other chronic pain; M54.50 Low back pain, unspecified; Z79.899 Other long term (current) drug therapy
CPT/HCPCS: 96372; 99283; 99284; J1885

== ENCOUNTER 2024-02-01 12:15 | Emergency (ER) | payer MEDICAID, SELFPAY ==
--- NOTE | ~2024-02-01 | XR_ITS ---
EXAMINATION: RADIOGRAPH LEFT ANKLE AND LEFT FOOT CLINICAL INFORMATION: Jumped, trauma, pain. COMPARISON: No similar priors. TECHNIQUE: 2 views of the left ankle and 3 views of the left foot. FINDINGS: Soft tissue swelling more prominent along the lateral ankle/foot. No unexpected radiopaque foreign bodies. No acute osseous fractures or dislocation. XR/XR foot LT min 3V IMPRESSION: Soft tissue swelling but no acute fractures or malalignment. Electronically signed by: Betty Lamb MD 02/01/2024 01:15 PM EDT
--- NOTE | ~2024-02-01 | XR_ITS ---
EXAMINATION: RADIOGRAPH LEFT ANKLE AND LEFT FOOT CLINICAL INFORMATION: Jumped, trauma, pain. COMPARISON: No similar priors. TECHNIQUE: 2 views of the left ankle and 3 views of the left foot. FINDINGS: Soft tissue swelling more prominent along the lateral ankle/foot. No unexpected radiopaque foreign bodies. No acute osseous fractures or dislocation. XR/XR ankle LT min 3V IMPRESSION: Soft tissue swelling but no acute fractures or malalignment. Electronically signed by: Betty Lamb MD 02/01/2024 01:15 PM EDT
[2024-02-01 12:31] VITALS: BP 124/78; PULSE 92; RESP 16; TEMP 36.5; O2SAT 97; BMI 41.4
--- NOTE | 2024-02-01 12:45 | ED_ITS ---
HPI - Extremity Injury (Lower) General Chief Complaint: Extremity Injury, Lower Stated Complaint: L ankle injury Time Seen by Provider: 02/01/24 13:13 Source: patient Mode of arrival: ambulatory Limitations: no limitations History of Present Illness ED Provider: Jonny Huizar PA-C HPI Narrative: 23-year-old male presents the ER for evaluation of left ankle pain and swelling after he twisted it while playing basketball last night. Patient reports getting caught up with another player, and his left foot Roni inward as he was falling. He did not hear any pops or snaps. He had pain with ambulation and swelling since. Pain is primarily in the outside of the ankle. He denies any numbness, weakness, tingling. To this ankle in the past. He took ibuprofen last night with ongoing pain this morning so came to the ER for evaluation. He works on his feet and is looking to see if it is okay for him to still go to work or not. MD complaint: ankle injury and foot injury Onset (ago): day(s) (1) Injury: Left: ankle and foot Type of Injury: inversion Place: street/outdoors Severity: moderate Severity scale (1-10): 5 Relieving factors: NSAID Exacerbating factors: weight bearing, movement and palpation Context: fall and jumping Associated symptoms: able to partially bear weight Other symptoms: none Treatments prior to arrival: NSAIDS Related Data Previous Rx's ?Medication ?Instructions ?Recorded clonidine HCl 0.1 mg tablet 0.05 mg (1/2 x 0.1 mg) PO BID PRN 04/19/21 anxiety/agitation 30 days #30 tabs hydroxyzine HCl 25 mg tablet 25 mg PO Q6H PRN Anxiety 30 days 04/19/21 #60 tabs lamotrigine 25 mg tablet See Rx Instructions .Route 04/19/21 .COMPLEX 30 days #53 tabs mirtazapine 15 mg tablet 15 mg PO BEDTIME 30 days #30 tabs 04/19/21 trazodone 50 mg tablet 50 mg PO BEDTIME PRN Insomnia 30 04/19/21 days #30 tabs clonidine HCl 0.1 mg tablet 0.05 mg (1/2 x 0.1 mg) PO BID PRN 05/20/21 moderate anxiety 30 days #30 tabs hydroxyzine pamoate 50 mg capsule 50 mg PO BID PRN anxiety 30 days 05/20/21 (Vistaril) #60 caps lamotrigine 25 mg tablet (Lamictal) 75 mg (3 x 25 mg) PO DAILY 30 days 05/20/21 #90 tabs trazodone 50 mg tablet 50 mg PO BEDTIME PRN insomnia 30 05/20/21 days #30 tabs benzonatate 100 mg capsule 100 mg PO BID PRN cough #20 caps 04/03/22 prednisone 20 mg tablet 40 mg (2 x 20 mg) PO DAILY 5 days 04/03/22 #10 tabs prednisone 50 mg tablet 50 mg PO DAILY 4 days #4 tabs 10/16/22 cyclobenzaprine 5 mg tablet 5 mg PO BEDTIME PRN muscle spasm 11/05/22 #4 tabs ketorolac 10 mg tablet 10 mg PO Q6H PRN pain 5 days #20 11/05/22 tabs ibuprofen 600 mg tablet 600 mg PO Q8H PRN pain #20 tabs 02/01/24 Allergies Allergy/AdvReac Type Severity Reaction Status Date / Time No Known Allergies Allergy Verified 02/01/24 12:33 Review of Systems Review of Systems: Yes all other systems are reviewed and are negative [facility] Past Medical History Medical History Asthma Depression Surgical History S/P tonsillectomy Social History Social History Household Members: Family Household Members Other:: 5 Housing: House Do you presently have visiting nurse or other home services: No Comment: Pt ambulates independently with strong gait Patient Tobacco Use Status: Never used Tobacco e-Cigarette/Vaping Use: Never Used Substance Use Type: Marijuana and Caffiene Advance Directives: No Advance Directives Information Provided: No service: No Sexual orientation: Straight/Heterosexual Physical Exam Vital Signs: Vital Signs: Last Vital Signs Temp 97.7 F 02/01/24 13:38 Pulse 92 02/01/24 13:38 Resp 16 02/01/24 13:38 BP 124/78 02/01/24 13:38 Pulse Ox 97 02/01/24 13:38 O2 Del Method Room Air 02/01/24 13:38 BMI result Body Mass Index 41.4 Appearance: Alert. Oriented X3. No acute distress. HEENT: normal inspection CVS: Normal heart rate and rhythm. Pulses normal. Respiratory: No respiratory distress. Skin: Skin warm and dry. Normal skin color. Normal skin turgor. No rashes. Extremities: Left lateral ankle and proximal foot with moderate generalized swelling, no overlying erythema or gross deformity. Pain with plantar flexion. Tenderness of the lateral malleolus area without any point tenderness. Foot is warm and well perfused with 2+ DP pulses. Neurovascularly intact distally. Neuro: Oriented X 3. No motor deficit. No sensory deficit. Ambulates with steady gait Course Course Course Narrative: This is a Rapid Medical Examination (RME) performed by Bridger Walker PA-C in triage. Full HPI, ROS, assessment and treatment plan per primary provider in the Main ED. 23 yo male hx of PTSD, MDD here for eval of left ankle pain s/p jumping and landing on the left foot wrong while playing basketball last night. took advil last night. Plan: xrs ordered Medical Decision Making Medical Decision Making MDM Narrative: 23-year-old male presents the ER for evaluation of left lateral ankle pain and swelling after he twisted it while playing basketball yesterday. He is able to partially bear weight. No gross deformity on examination but he does have some moderate soft tissue swelling. X-ray today does not show any acute fracture of his left ankle or foot. Will treat for acute sprain. He was placed in an Alexandro wrap for compression and support. We discussed rice therapy along with NSAIDs and rest. He has crutches at home that he can use. He is stable for discharge home. Work note provided per request. Differential Diagnosis Differential Diagnoses: The differential diagnosis associated with the presentation includes Ankle sprain, ankle fracture, foot contusion, ankle contusion Independent Interpretation I performed an independent interpretation of an: Plain X-Ray Interpretation: No visible fracture of the left ankle or foot, agrees radiology read Radiology Impression Discussion of test interpretation with radiology: I have reviewed the radiologist's reading. Radiologist Impression: EXAMINATION: RADIOGRAPH LEFT ANKLE AND LEFT FOOT CLINICAL INFORMATION: Jumped, trauma, pain. COMPARISON: No similar priors. TECHNIQUE: 2 views of the left ankle and 3 views of the left foot. FINDINGS: Soft tissue swelling more prominent along the lateral ankle/foot. No unexpected radiopaque foreign bodies. No acute osseous fractures or dislocation. XR/XR foot LT min 3V IMPRESSION: Soft tissue swelling but no acute fractures or malalignment. External Record Review External record reviewed: Prior outpatient labs and Prior outpatient radiology Prescription Management I considered prescription management with: Pain Medication Procedures Orthopedic Splinting/Casting Injury #1: Side: left Lower Extremity Injury Location: ankle Lower Extremity Immobilizer: Alexandro wrap Critical Care Time Critical Care Time Critical Care Time: No Discharge Plan Discharge Clinical Impression: Ankle sprain and strain Patient Disposition: Home, Self-Care Instructions: Ankle Sprain (DC) Additional Instructions: Your x-ray today was normal. Rest your ankle and elevate your foot when possible. Recommend ALEXANDRO wrap for support and compression. Use ice several times per day for the next 48 hours. You may bear weight as tolerated. If pain is too severe, use crutches until better. Take Motrin and/or Tylenol as needed for pain. Follow up with your doctor as needed. Prescriptions: New ibuprofen 600 mg tablet 600 mg PO Q8H PRN (Reason: pain) Qty: 20 0RF No Action lamotrigine 25 mg Tablet See Rx Instructions .ROUTE .COMPLEX 30 Days Qty: 53 0RF Rx Instructions: take 1 tab daily for 7 days, then take 2 tabs daily mirtazapine 15 mg Tablet 15 mg PO BEDTIME 30 Days Qty: 30 0RF trazodone 50 mg Tablet 50 mg PO BEDTIME PRN (Reason: Insomnia) 30 Days Qty: 30 0RF hydroxyzine HCl 25 mg Tablet 25 mg PO Q6H PRN (Reason: Anxiety) 30 Days Qty: 60 0RF clonidine HCl 0.1 mg tablet 0.05 mg PO BID PRN (Reason: anxiety/agitation) 30 Days Qty: 30 0RF Rx Instructions: take 1/2 tab twice a day as needed for anxiety/agitation; may take 1 full tab trazodone 50 mg tablet 50 mg PO BEDTIME PRN (Reason: insomnia) 30 Days Qty: 30 0RF lamotrigine [Lamictal] 25 mg tablet 75 mg PO DAILY 30 Days Qty: 90 0RF hydroxyzine pamoate [Vistaril] 50 mg capsule 50 mg PO BID PRN (Reason: anxiety) 30 Days Qty: 60 0RF clonidine HCl 0.1 mg tablet 0.05 mg PO BID PRN (Reason: moderate anxiety) 30 Days Qty: 30 0RF prednisone 20 mg tablet 40 mg PO DAILY 5 Days Qty: 10 0RF benzonatate 100 mg capsule 100 mg PO BID PRN (Reason: cough) Qty: 20 0RF prednisone 50 mg tablet 50 mg PO DAILY 4 Days Qty: 4 0RF ketorolac 10 mg tablet 10 mg PO Q6H PRN (Reason: pain) 5 Days Qty: 20 0RF Rx Instructions: Patient received Toradol in the emergency room cyclobenzaprine 5 mg tablet 5 mg PO BEDTIME PRN (Reason: muscle spasm) Qty: 4 0RF Stand Alone Forms: Work/School Release Interventions: ED Discharge Assessment Last Done: 02/01/24 13:38 Discharge Date/Time: 02/01/24 13:38 Print Language: Citizen Of [place]
[2024-02-01 13:38] VITALS: BP 124/78; PULSE 92; RESP 16; TEMP 36.5; O2SAT 97
== END 2024-02-01 13:38 | disposition home or self-care (01) ==
PROVIDERS: Emergency Provider Emergency Medicine
DX: S93.402A Sprain of unspecified ligament of left ankle, initial encounter (principal); S96.912A Strain of unspecified muscle and tendon at ankle and foot level, left foot, initial encounter; X50.1XXA Overexertion from prolonged static or awkward postures, initial encounter; Y93.67 Activity, basketball; Y92.310 Basketball court as the place of occurrence of the external cause; Y99.9 Unspecified external cause status
CPT/HCPCS: 73610; 73630; 99282; 99283